=== PATIENT | male | born 1935 | race Caucasian/White ===

== ENCOUNTER 2019-02-17 05:14 | Inpatient (IN) | payer OTHER ==
[2019-02-17] MEDS ORDERED: IPRATROPIUM BROM 0.5MG/2.5ML ONE (05:54)
[2019-02-17] MEDS ORDERED: ALBUTEROL 2.5 MG/3 ML NEB SOL ONE (05:54)
[2019-02-17 06:11] LABS: Absolute Monocytes 1.2 K/uL (0.1-1.3); Absolute Neutrophil 10.6 K/uL (1.8-8.0); Basophils % 0.4 % (0-1.3); Eosinophils % 0.9 % (0-4.4); Hematocrit 41.7 % (39.6-49.0); Lymphocytes % 7.7 % (15.3-44.8); MPV 7.7 fL (7.6-11.3); Monocytes % 9.1 % (3.3-12.3); RBC Red Blood Cell Count 4.92 M/uL (4.33-5.43)
[2019-02-17 06:12] LABS: Protime INR 1.18
[2019-02-17 06:19] LABS: ALT/SGPT 24 U/L (12-78); AST/SGOT 19 U/L (15-37); Albumin 3.9 g/dL (3.4-5.0); Alkaline Phosphatase 74 U/L (45-117); BUN Blood Urea Nitrogen 22 mg/dL (7-18); Bicarbonate 24 mmol/L (21-32); Bilirubin Direct 0.3 mg/dL (0-0.2); Bilirubin Total 1.1 mg/dL (0.2-1.0); Glucose Level 138 mg/dL (74-106); Magnesium 1.9 mg/dL (1.8-2.4); NT PRO-BNP 348 pg/mL (<450); Potassium 3.9 mmol/L (3.5-5.1); Protein, Total 7.6 g/dL (6.4-8.2); Sodium Level 140 mmol/L (136-145); Troponin (Emerg Dept Use Only) < 0.02 ng/mL (0.0-0.045)
--- NOTE | 2019-02-17 07:16 | EDPHYS ---
Physician Documentation [facility] Name: Bashir Patel Age: 83 yrs Sex: Male : 1935 Arrival Date: 02/17/2019 Time: 05:15 Bed 16 Private MD: Sunny Douglass V ED Physician Angel Buck HPI: 02/17 06:31 This 83 yrs old Male presents to ER via Ambulatory with complaints of tw4 Shortness Of Breath. 06:31 The patient has shortness of breath at rest. tw4 06:31 Onset: The symptoms/episode began/occurred yesterday. Duration: The symptoms are tw4 continuous, and are unchanged since they started. The patient's shortness of breath has no apparent modifying factors. Associated signs and symptoms: The patient has no apparent associated signs or symptoms. Severity of symptoms: At their worst the symptoms were moderate. The patient has not experienced similar symptoms in the past. Historical: - Allergies: 05:43 SHELLFISH; bb - Home Meds: 05:43 losartan 100 mg oral tab 1 tab once daily [Active]; triamterene-hydrochlorothiazid bb 37.5-25 mg Oral tab 1 tab once daily [Active]; pravastatin 80 mg oral tab 1 tab once daily [Active]; multivitamin oral cap [Active]; Iron CR Oral [Active]; pantoprazole 40 mg oral TbEC 1 tab once daily [Active]; Curaphen [Active]; Probiotic oral oral [Active]; Plavix 75 mg Oral tab 1 tab once daily [Active]; Flomax 0.4 mg Oral cp24 1 cap once daily [Active]; venlafaxine 75 mg oral tr24 1 tab once daily [Active]; famotidine 20 mg Oral tab 1 tab once daily [Active]; cyclobenzaprine 5 mg Oral tab as needed [Active]; fenofibrate 150 mg oral cap 1 cap once daily [Active]; trazodone 100 mg Oral tab nightly [Active]; amlodipine 5 mg tab 1 tab once daily [Active]; metoprolol succinate 50 mg oral Tb24 1 tab once daily [Active]; naltrexone oral oral [Active]; - PMHx: 05:43 GERD; Hypertension; Hyperlipidemia; bleeding ulcers; CAD; bb - PSHx: 05:43 Tonsillectomy; polyp removal; bb - Immunization history:: Adult Immunizations up to date. - Social history:: Smoking status: unknown. - Ebola Screening: : No symptoms or risks identified at this time. ROS: 06:31 Constitutional: Negative for fever, chills, and weight loss, Eyes: Negative for injury, tw4 pain, redness, and discharge, ENT: Negative for injury, pain, and discharge, Abdomen/GI: Negative for abdominal pain, nausea, vomiting, diarrhea, and constipation. 06:31 Skin: Negative for injury, rash, and discoloration, Neuro: Negative for headache, weakness, numbness, tingling, and seizure. 06:31 Respiratory: Positive for shortness of breath, Negative for cough, dyspnea on exertion, hemoptysis, orthopnea, pleurisy. Exam: 06:31 Constitutional: This is a well developed, well nourished patient who is awake, alert, tw4 and in no acute distress. Head/Face: Normocephalic, atraumatic. Chest/axilla: Normal chest wall appearance and motion. Nontender with no deformity. No lesions are appreciated. Cardiovascular: Regular rate and rhythm with a normal S1 and S2. No gallops, murmurs, or rubs. Normal PMI, no JVD. No pulse deficits. 06:31 Abdomen/GI: Soft, non-tender, with normal bowel sounds. No distension or tympany. No guarding or rebound. No evidence of tenderness throughout. Back: No spinal tenderness. No costovertebral tenderness. Full range of motion. MS/ Extremity: Pulses equal, no cyanosis. Neurovascular intact. Full, normal range of motion. Neuro: Awake and alert, GCS 15, oriented to person, place, time, and situation. Cranial nerves II-XII grossly intact. Motor strength 5/5 in all extremities. Sensory grossly intact. Cerebellar exam normal. Normal gait. 06:31 Respiratory: the patient does not display signs of respiratory distress, Respirations: normal, Breath sounds: wheezing: Vital Signs: 05:35 BP 168 / 90; Pulse 117; Resp 26 S; Temp 99.6(O); Pulse Ox 96% on R/A; Weight 113.4 kg bb (R); Height 6 ft. 1 in. (185.42 cm) (R); 07:00 BP 171 / 91; Pulse 126; Resp 23; Temp 98.6(O); Pulse Ox 93% on R/A; Pain 9/10; rb1 08:00 BP 161 / 91; Pulse 128; Resp 22; Temp 98.1(O); Pulse Ox 96% on 2 lpm NC; Pain 9/10; rb1 09:00 BP 153 / 89; Pulse 120; Resp 20; Temp 99.6(O); Pulse Ox 95% on 2 lpm NC; Pain 7/10; rb1 10:00 BP 140 / 94; Pulse 116; Resp 21; Temp 99.1(O); Pulse Ox 99% on 2 lpm NC; Pain 6/10; rb1 11:00 BP 148 / 78; Pulse 120; Resp 20; Temp 98.9(O); Pulse Ox 95% on 2 lpm NC; Pain 4/10; rb1 12:30 BP 165 / 90; Pulse 116; Resp 22; Temp 99.0(O); Pulse Ox 95% on 2 lpm NC; mh5 13:30 BP 143 / 79; Pulse 113; Resp 20; Temp 99.(O); Pulse Ox 97% on 2 lpm NC; Pain 6/10; rb1 14:27 BP 102 / 89; Pulse 117; Resp 18; Temp 98.9(O); Pulse Ox 94% on 2 lpm NC; mh5 15:00 BP 143 / 79; Pulse 101; Resp 20; Temp 98.9(O); Pulse Ox 95% on 2 lpm NC; Pain 6/10; rb1 05:35 Body Mass Index 32.98 (113.40 kg, 185.42 cm) bb 07:00 Pt. put on 2 L NC. rb1 MDM: 05:34 Patient medically screened. tw4 23:02 Differential diagnosis: Anxiety Reaction reactive airway disease, Sepsis. Data tw4 reviewed: vital signs, nurses notes. Data interpreted: child monitor: rhythm is normal sinus rhythm, Pulse oximetry: Interpretation: normal. Counseling: I had a detailed discussion with the patient and/or guardian regarding: the historical points, exam findings, and any diagnostic results supporting the discharge/admit diagnosis, lab results, radiology results. Medication response: albuterol nebulizer treatment(s) partially relieved the patient's wheezing. Response to treatment: the patient's symptoms have mildly improved after treatment, and as a result, I will admit patient. Physician consultation: Sunny Douglass MD was contacted at 07:00, regarding admission, patient's condition, and will see patient in inpatient room. Admission orders: after a detailed discussion of the patient's condition and case, the admit orders are written by me. 02/17 05:40 Order name: Basic Metabolic Panel; Complete Time: 06:48 02/17 06:48 Interpretation: Normal except: GLUC 138; BUN 22; CRE 1.71; GFR 39. 02/17 05:40 Order name: CBC with Diff; Complete Time: 06:48 02/17 06:48 Interpretation: Normal except: WBC 12.9; MCHC 34.6; RDW 17.2; LYM% 7.7; ELY% 81.9; NEUT tw4 A 10.6. 02/17 05:40 Order name: LFT's; Complete Time: 06:48 02/17 06:48 Interpretation: BILIT 1.1; BILID 0.3; GLOB 3.7. 02/17 05:40 Order name: Magnesium; Complete Time: 06:49 02/17 06:49 Interpretation: Within normal limits: MG 1.9. 02/17 05:40 Order name: NT PRO-BNP; Complete Time: 06:49 02/17 06:49 Interpretation: Within normal limits: NT PRO-BNP 348. 02/17 05:40 Order name: PT-INR; Complete Time: 06:49 02/17 05:40 Order name: Troponin (emerg Dept Use Only); Complete Time: 06:50 02/17 06:50 Interpretation: TROPED < 0.02. 02/17 05:40 Order name: XRAY Chest (1 view) 02/17 05:40 Order name: EKG; Complete Time: 05:42 02/17 05:40 Order name: Cardiac monitoring; Complete Time: 05:43 02/17 05:40 Order name: EKG - Nurse/Tech; Complete Time: 05:43 02/17 06:24 Order name: Blood Culture Adult (2) lp1 02/17 09:06 Order name: Diet Regular; Complete Time: 09:07 02/17 05:40 Order name: IV Saline Lock; Complete Time: :43 4 02/17 05:40 Order name: Labs collected and sent; Complete Time: :4 02/17 05:40 Order name: O2 Per Protocol; Complete Time: 4 02/17 05:40 Order name: O2 Sat Monitoring; Complete Time: :43 4 EC:31 Rate is 114 beats/min. Rhythm is regular, Sinus tachycardia. QRS [place] is Normal. MA tw4 interval is normal. QRS interval is normal. QT interval is normal. No Q waves. T waves are Normal. No ST changes noted. Clinical impression: Abnormal EKG without significant change. Interpreted by me. Reviewed by me. Administered Medications: 05:47 Drug: DuoNeb (3:1) (2.5 mg - 0.5 mg) 3 ml Route: Nebulizer; 4 06:15 Follow up: Response: No adverse reaction; Marked relief of symptoms jb4 Disposition: 02/17/19 07:16 Hospitalization ordered by Sunny Douglass for Observation. Preliminary diagnosis are Acute bronchospasm, Tachycardia, unspecified, Pleural effusion, not elsewhere classified. - Bed requested for Telemetry/MedSurg (observation). - Status is Observation. rb1 - Condition is Stable. - Problem is new. - Symptoms have worsened. UTI on Admission? No Signatures: Dispatcher [employer] EDMS Mariya Pena, RN RN Nallely Rose ms Karen Vides, RN RN rb1 Manuel Weinberg, RN RN jb4 Angel Buck MD MD tw4 Corrections: (The following items were deleted from the chart) 07:16 07:16 Hospitalization Ordered by Sunny Douglass MD for Observation. Preliminary diagnosis tw4 is Acute bronchospasm; Tachycardia, unspecified. Bed requested for Telemetry/MedSurg (observation). Status is Observation. Condition is Stable. Problem is new. Symptoms have worsened. UTI on Admission? No. tw4 14:29 07:16 02/17/2019 07:16 Hospitalization Ordered by Sunny Douglass MD for Observation. ms Preliminary diagnosis is Acute bronchospasm; Tachycardia, unspecified; Pleural effusion, not elsewhere classified. Bed requested for Telemetry/MedSurg (observation). Status is Observation. Condition is Stable. Problem is new. Symptoms have worsened. UTI on Admission? No. tw4 15:35 14:29 02/17/2019 07:16 Hospitalization Ordered by Sunny Douglass MD for Observation. rb1 Preliminary diagnosis is Acute bronchospasm; Tachycardia, unspecified; Pleural effusion, not elsewhere classified. Bed requested for Telemetry/MedSurg (observation). Status is Observation. Condition is Stable. Problem is new. Symptoms have worsened. UTI on Admission? No. ms
--- NOTE | 2019-02-17 07:16 | ER ---
Nurse's Notes [facility] Name: Bashir Patel Age: 83 yrs Sex: Male : 1935 Arrival Date: 02/17/2019 Time: 05:15 Bed 16 Private MD: Sunny Douglass V Diagnosis: Acute bronchospasm;Tachycardia, unspecified;Pleural effusion, not elsewhere classified Presentation: 02/17 05:33 Presenting complaint: Patient states: he has been having shortness of breath since bb about 1500 yesterday pt unable to get comfortable because it is difficult to breath. Transition of care: patient was not received from another setting of care. Onset of symptoms was February 16, 2019. Risk Assessment: Do you want to hurt yourself or someone else? Patient reports no desire to harm self or others. Initial Sepsis Screen: Does the patient meet any 2 criteria? RR > 20 per min. HR > 90 bpm. Yes Does the patient have a suspected source of infection? Yes: Productive cough/pneumonia. Care prior to arrival: None. 05:33 Method Of Arrival: Ambulatory bb 05:33 Acuity: ARIANE 2 bb 05:33 Initial Sepsis Screen: If YES to both, name of provider notified: Angel Buck MD. Triage Assessment: 07:00 Respiratory: Reports shortness of breath at rest Pt. was put on 2 L NC after being 93% rb1 on RA. O2 sat increased to 96% on 2 L NC the patient has moderate shortness of breath. Historical: - Allergies: 05:43 SHELLFISH; bb - Home Meds: 05:43 losartan 100 mg oral tab 1 tab once daily [Active]; triamterene-hydrochlorothiazid bb 37.5-25 mg Oral tab 1 tab once daily [Active]; pravastatin 80 mg oral tab 1 tab once daily [Active]; multivitamin oral cap [Active]; Iron CR Oral [Active]; pantoprazole 40 mg oral TbEC 1 tab once daily [Active]; Curaphen [Active]; Probiotic oral oral [Active]; Plavix 75 mg Oral tab 1 tab once daily [Active]; Flomax 0.4 mg Oral cp24 1 cap once daily [Active]; venlafaxine 75 mg oral tr24 1 tab once daily [Active]; famotidine 20 mg Oral tab 1 tab once daily [Active]; cyclobenzaprine 5 mg Oral tab as needed [Active]; fenofibrate 150 mg oral cap 1 cap once daily [Active]; trazodone 100 mg Oral tab nightly [Active]; amlodipine 5 mg tab 1 tab once daily [Active]; metoprolol succinate 50 mg oral Tb24 1 tab once daily [Active]; naltrexone oral oral [Active]; - PMHx: 05:43 GERD; Hypertension; Hyperlipidemia; bleeding ulcers; CAD; bb - PSHx: 05:43 Tonsillectomy; polyp removal; bb - Immunization history:: Adult Immunizations up to date. - Social history:: Smoking status: unknown. - Ebola Screening: : No symptoms or risks identified at this time. Screenin:47 Abuse screen: Denies threats or abuse. Nutritional screening: No deficits noted. jb4 Tuberculosis screening: No symptoms or risk factors identified. Fall Risk IV access (20 points). Ambulatory Aid- Crutches/Cane/Walker (15 pts). Gait- Weak (10 pts.). Total Ac Fall Scale indicates High Risk Score (45 or more points). Fall prevention measures have been instituted. Side Rails Up X 2 Placed Close to Nursing Station Frequent Obs/Assessments Occuring Family Present and informed to notify staff if the need to leave the bedside As available patient and family educated on Fall Prevention Program and Strategies. Assessment: 05:47 General: Appears distressed, uncomfortable, Behavior is calm, cooperative, appropriate jb4 for age. Pain: Complains of pain in chest Pain does not radiate. Quality of pain is described as pleurisy like pain. Pain began 1 day ago. Aggravated by Taking a deep breath. Neuro: Level of Consciousness is awake, alert, obeys commands, Oriented to person, place, time, situation. Cardiovascular: Patient's skin is warm and dry. Rhythm is sinus tachycardia. Respiratory: Airway is patent Respiratory effort is even, labored, Respiratory pattern is symmetrical, tachypnea Breath sounds are clear in right upper lobe, left upper lobe, right middle lobe and left lower lobe Breath sounds are diminished in right lower lobe, left posterior upper lobe, right posterior upper lobe, left posterior lower lobe, right posterior middle lobe and right posterior lower lobe. GI: No signs and/or symptoms were reported involving the gastrointestinal system. : No signs and/or symptoms were reported regarding the genitourinary system. EENT: No signs and/or symptoms were reported regarding the EENT system. Derm: Skin is intact, Skin is dry, Skin is normal, Skin temperature is cool. Musculoskeletal: Circulation, motion, and sensation intact. 06:20 Reassessment: PT reports breathing better and more easily. Respiratory: Airway is jb4 patent Respiratory effort is even, labored, Respiratory pattern is symmetrical, tachypnea Breath sounds are clear bilaterally. 07:00 Pain: Complains of pain in chest Pain does not radiate. Pain currently is 9 out of 10 rb1 on a pain scale. Aggravated by deep breathing. Neuro: Level of Consciousness is awake, alert, obeys commands, Oriented to person, place, time, situation. Cardiovascular: Capillary refill < 3 seconds is brisk in bilateral fingers. Respiratory: Airway is patent Respiratory effort is even, labored, Respiratory pattern is symmetrical. Derm: Skin is pink, warm \T\ dry. Musculoskeletal: Range of motion: intact in all extremities. 08:00 Reassessment: Patient appears in no apparent distress at this time. No changes from rb1 previously documented assessment. at bedside. 08:59 Reassessment: Patient appears in no apparent distress at this time. Patient and/or rb1 family updated on plan of care and expected duration. Pain level reassessed. Patient is alert, oriented x 3, equal unlabored respirations, skin warm/dry/pink. 09:55 Reassessment: Patient appears in no apparent distress at this time. No changes from rb1 previously documented assessment. at bedside. 10:50 Reassessment: Patient appears in no apparent distress at this time. Patient and/or rb1 family updated on plan of care and expected duration. Pain level reassessed. Patient is alert, oriented x 3, equal unlabored respirations, skin warm/dry/pink. Patient states feeling better. 11:50 Reassessment: Patient appears in no apparent distress at this time. No changes from rb1 previously documented assessment. 12:50 Reassessment: Patient appears in no apparent distress at this time. Patient and/or rb1 family updated on plan of care and expected duration. Pain level reassessed. Patient is alert, oriented x 3, equal unlabored respirations, skin warm/dry/pink. at bedside. 13:48 Reassessment: Pt. is vomiting and requested medication for nausea per Naya, agent contract clerk. rb1 14:11 Reassessment: Left voicemail for Dr. Douglass requesting that he puts pt. orders in [address] so we can take the pt. to the floor and nausea medication per pt. request. 14:47 Reassessment: Patient appears in no apparent distress at this time. Patient and/or rb1 family updated on plan of care and expected duration. Pain level reassessed. Patient is alert, oriented x 3, equal unlabored respirations, skin warm/dry/pink. 15:09 Reassessment: Patient appears in no apparent distress at this time. No changes from [facility] previously documented assessment. Called report to REINA Hernandez. Information from the SBAR was given. All questions asked and answered. Vital Signs: 05:35 BP 168 / 90; Pulse 117; Resp 26 S; Temp 99.6(O); Pulse Ox 96% on R/A; Weight 113.4 kg bb (R); Height 6 ft. 1 in. (185.42 cm) (R); 07:00 BP 171 / 91; Pulse 126; Resp 23; Temp 98.6(O); Pulse Ox 93% on R/A; Pain 9/10; rb1 08:00 BP 161 / 91; Pulse 128; Resp 22; Temp 98.1(O); Pulse Ox 96% on 2 lpm NC; Pain 9/10; rb1 09:00 BP 153 / 89; Pulse 120; Resp 20; Temp 99.6(O); Pulse Ox 95% on 2 lpm NC; Pain 7/10; rb1 10:00 BP 140 / 94; Pulse 116; Resp 21; Temp 99.1(O); Pulse Ox 99% on 2 lpm NC; Pain 6/10; rb1 11:00 BP 148 / 78; Pulse 120; Resp 20; Temp 98.9(O); Pulse Ox 95% on 2 lpm NC; Pain 4/10; rb1 12:30 BP 165 / 90; Pulse 116; Resp 22; Temp 99.0(O); Pulse Ox 95% on 2 lpm NC; mh5 13:30 BP 143 / 79; Pulse 113; Resp 20; Temp 99.(O); Pulse Ox 97% on 2 lpm NC; Pain 6/10; rb1 14:27 BP 102 / 89; Pulse 117; Resp 18; Temp 98.9(O); Pulse Ox 94% on 2 lpm NC; mh5 15:00 BP 143 / 79; Pulse 101; Resp 20; Temp 98.9(O); Pulse Ox 95% on 2 lpm NC; Pain 6/10; rb1 05:35 Body Mass Index 32.98 (113.40 kg, 185.42 cm) bb 07:00 Pt. put on 2 L NC. rb1 ED Course: 05:15 Patient arrived in ED. ds1 05:15 Sunny Douglass MD is Private Physician. ds1 05:34 Angel Buck MD is Attending Physician. tw4 05:35 Triage completed. bb 05:35 Arm band placed on Patient placed in an exam room, on a stretcher, on cardiac technologist, bb on pulse oximetry. EKG completed in triage. Results shown to MD. 05:35 Inserted saline lock: 20 gauge in left forearm, using aseptic technique. Blood lp1 collected. 05:41 Manuel Weinberg, REINA is Primary Nurse. jb4 05:47 Patient has correct armband on for positive identification. Bed in low position. Call jb4 light in reach. Side rails up X 1. monitor tech on. Pulse ox on. NIBP on. 05:59 X-ray completed. Portable x-ray completed in exam room. Patient tolerated procedure kw well. 06:03 XRAY Chest (1 view) In Process Unspecified. EDMS 06:49 First set of blood cultures drawn by me. ag4 07:15 Sunny Douglass MD is Hospitalizing Provider. tw4 15:33 No provider procedures requiring assistance completed. Patient admitted, IV remains in rb1 place. Administered Medications: 05:47 Drug: DuoNeb (3:1) (2.5 mg - 0.5 mg) 3 ml Route: Nebulizer; jb4 06:15 Follow up: Response: No adverse reaction; Marked relief of symptoms jb4 Intake: 11:00 200 ml in urinal rb1 Output: 11:00 Urine: 1ml (Voided); Total: 1ml. rb1 11:15 Urine: 1ml (Voided); Total: 2ml. rb1 11:00 200 ml in urinal rb1 Outcome: 07:16 Decision to Hospitalize by Provider. tw4 15:33 Admitted to Med/surg accompanied by tech, family with patient, via wheelchair, room rb1 207, with oxygen, with chart, Report called to REINA Hernandez 15:33 Condition: stable 15:33 Instructed on the need for admit. 15:35 Patient left the ED. rb1 Signatures: Dispatcher [employer] EDPR Mirtha Hairston ds1 Mariya Pena RN RN bb Sharon Mendiola Laura, RN RN lp1 Karen Vides RN RN rb1 Manuel Weinberg RN RN jb4 Martinez, Maria 5 Angel Buck MD MD tw4 Skip Patterson ag4
--- NOTE | 2019-02-17 10:07 | RAD REPORT ---
EXAM DESCRIPTION: [facility] Single View02/17/2019 6:03 am CLINICAL HISTORY: sob COMPARISON: November 2018 FINDINGS: The lungs appear clear of acute infiltrate. The heart is normal size IMPRESSION: No acute abnormalities displayed
[2019-02-17] MEDS ORDERED: CYCLOBENZAPRINE 10 MG TAB PO PRN (16:40)
--- NOTE | 2019-02-17 16:57 | P.HP ---
Certification for Inpatient Patient admitted to: Inpatient With expected LOS: >2 Midnights Practitioner: I am a practitioner with admitting privileges, knowledge of patient current condition, hospital course, and medical plan of care. Services: Services provided to patient in accordance with Admission requirements found in Title 42 Section 412.3 of the Code of Federal Regulations Patient History Date of Service: 02/17/19 Reason for admission: SHORT OF BREATH FOR ONE DAY. History of Present Illness: MR. BAKER WAS STABLE AND HAD NO SYMPTOMS WHEN I SAW HIM ON TUESDAY. HE STARTED TO GET SHORT OF BREATH ON TUESDAY. HE HAS NO CHEST PAIN. HE WHILE TALKING TO ME IS GETTING TO STOP EVERY FEW WORDS. Allergies iodine Allergy (Unverified 02/25/15 22:13) Unknown Penicillins Allergy (Unverified 02/25/15 22:13) Unknown SHELLFISH Allergy (Uncoded 02/25/15 22:13) Unknown Home Medications: Amlodipine [Norvasc] 5 mg PO DAILY 02/17/19 Clopidogrel Bisulfate [Plavix] 75 mg PO DAILY 02/17/19 Cyclobenzaprine [Flexeril] 10 mg PO BID PRN 02/17/19 Famotidine [Pepcid] 20 mg PO BID 02/17/19 Fenofibrate [Tricor] 145 mg PO DAILY 02/17/19 Ferrous Sulfate [Iron] 325 mg PO DAILY 02/17/19 Losartan Potassium [Cozaar] 100 mg PO DAILY 02/17/19 Metoprolol Succinate 50 mg PO DAILY 02/17/19 Naltrexone HCl 3 mg PO DAILY 02/17/19 Pantoprazole [Protonix Tab] 40 mg PO DAILY 02/17/19 Pravastatin Sodium 80 mg PO DAILY 02/17/19 Tamsulosin [Flomax] 0.4 mg PO BEDTIME 02/17/19 Trazodone [Desyrel] 100 mg PO BEDTIME 02/17/19 Triamterene/Hydrochlorothiazid [Triamterene-Hctz 37.5-25 mg Cp] 1 tab PO DAILY 02/17/19 Venlafaxine HCl [Venlafaxine HCl ER] 75 mg PO DAILY 02/17/19 Venlafaxine HCl [Venlafaxine HCl ER] 75 mg PO DAILY 02/17/19 - Past Medical/Surgical History Has patient received pneumonia vaccine in the past: No Diabetic: No -: htn -: hyperlipidemia -: gerd - Social History Smoking Status: Former smoker Alcohol use: No CD- Drugs: No Caffeine use: Yes Place of Residence: Home Review of Systems 10-point ROS is otherwise unremarkable General: Weakness, Malaise Respiratory: Shortness of Breath Physical Examination - Vital Signs Temperature: 98.9 F Blood Pressure: 102/89 Pulse: 117 Respirations: 18 - Physical Exam General: Alert, Mild distress, Obese HEENT: Atraumatic, PERRLA, Mucous membr. moist/pink, EOMI, Sclerae nonicteric Neck: Supple, 2+ carotid pulse no bruit, No LAD, Without JVD or thyroid abnormality Respiratory: Clear to auscultation bilaterally, Normal air movement Cardiovascular: Abnormal S1 S2 (TACHYCARDIA) Gastrointestinal: Normal bowel sounds, No tenderness Musculoskeletal: No tenderness Integumentary: No rashes Neurological: Normal gait, Normal speech, Normal strength at 5/5 x4 extr, Normal tone, Normal affect Lymphatics: No axilla or inguinal lymphadenopathy - Studies Laboratory Data (last 24 hrs) 02/17/19 05:35: PT 13.8 H, INR 1.18 02/17/19 05:35: WBC 12.9 H, Hgb 14.4, Hct 41.7, Plt Count 261 02/17/19 05:35: Sodium 140, Potassium 3.9, BUN 22 H, Creatinine 1.71 H, Glucose 138 H, Magnesium 1.9, Total Bilirubin 1.1 H, AST 19, ALT 24, Alkaline Phosphatase 74 Assessment and Plan - Problems (Diagnosis) (1) Dyspnea Current Visit: Yes Status: Acute Plan: MR BAKER GOT ACUTELY DYSPNEIC. HE IS OBESE AND HAS SOME RISK FACTORS FOR PE. I ORDERED D DIMER STAT. LOVENOX SC. WHEN CREATININE COMES DOWN TO 1.[address] ANGIO CHEST IN AM. HE SMOKED UNTIL AND DOES NOT HAVE COPD BY HISTORY. CXR SHOWS NO ACUTE CHANGES. HE HAS NO PNEUMONIA, CHF OR FIBROSIS. WILL COVER HIM FOR PE UNTIL FURTHER DIAGNOSED. HE HAS TACHYCARDIA. ER DOCTOR SAID HE WAS GOING TO ORDER VQ SCAN BUT HAS NOT BEEN DONE. I WILL COVER WITH LOVENOX AND DO CT IN AM IT MAY GIVE ME MORE INFORMATION LIKE PL.EFFUSION, MASSES ETC. PROGNOSIS IS GUARDED. ER HAS NOT DONE EKG. WE HAVE IT PENDING. TELEMETRY HAS BEEN ORDERED. - Advance Directives Does patient have a Living Will: Yes Does patient have a Durable POA for Healthcare: Yes
[2019-02-17] MEDS ORDERED: NACHLORIDE 0.45% 1,000 ML IV SCH (17:00)
[2019-02-17] MEDS: METHYLPREDNISOLONE 40 MG INJ IV SCH (17:27)
[2019-02-17 17:34] LABS: Arterial Blood Carboxyhemoglob 1.9 % (0-1.5); Blood Gas Oxyhemoglobin 91.1 % (94-97); Blood O2 Saturation 93.4 % (92-98.5)
[2019-02-17 17:51] LABS: Creatine Phosphokinase 109 U/L (39-308); Troponin I < 0.02 ng/mL (0.0-0.045)
[2019-02-17] MEDS: ALBUTEROL 2.5 MG/3 ML NEB SOL NEB SCH (19:55)
[2019-02-17 21:03] LABS: Urine Appearance CLOUDY; Urine Bilirubin NEGATIVE (NEG); Urine Blood TRACE (NEG); Urine Color DK YELLOW; Urine Glucose NEGATIVE (NEG); Urine Protein 1+ (NEG); Urine Urobilinogen 0.2 mg/dL (0.2-1.0)
[2019-02-17 21:20] LABS: Urine Microscopic Reflex ORDER UMIC
[2019-02-17 21:23] LABS: Urine Amorphous Sediment 1+ /HPF (NONE SEEN); Urine Bacteria <20 /HPF (NONE SEEN); Urine Culture Reflex Order REFLEXED; Urine RBC <5 /HPF (NONE SEEN)
[2019-02-17] MEDS: ENOXAPARIN 100 MG/ML SYR SQ SCH (21:48)
[2019-02-17] MEDS: TRAZODONE 50 MG TABLET PO SCH (21:48)
[2019-02-17] MEDS: TAMSULOSIN 0.4 MG SR CAP PO SCH (21:48)
[2019-02-17] MEDS: ATORVASTATIN 10 MG TAB PO SCH (21:48)
[2019-02-18] MEDS: METHYLPREDNISOLONE 40 MG INJ IV SCH ×2 (00:13→05:27)
[2019-02-18 01:27] LABS: Creatine Phosphokinase 124 U/L (39-308); Troponin I < 0.02 ng/mL (0.0-0.045)
[2019-02-18] MEDS: ALBUTEROL 2.5 MG/3 ML NEB SOL NEB SCH ×4 (02:00→20:00)
[2019-02-18] MEDS: PANTOPRAZOLE 40MG TABLET PO SCH (05:27)
--- NOTE | 2019-02-18 06:22 | EKG ---
Test Date: 2019-02-17 Test Time: 05:33:49 Rib Knitter: ALEXANDRA MEASUREMENT RESULTS: Intervals: Rate: 114 [place]: 142 QRSD: 86 QT: 334 QTc: 460 [place]: P: 12 [place]: 142 QRS: -26 T: 93 INTERPRETIVE STATEMENTS: Sinus tachycardia with occasional premature ventricular complexes Nonspecific ST abnormality Non specific T wave abnormality Abnormal ECG Compared to ECG 11/28/2018 17:08:51 ST (T wave) deviation now present T-wave abnormality now present Sinus rhythm no longer present Electronically Signed On 02-18-19 06:21:32 CDT by Abdirashid Bradford
[2019-02-18 06:32] LABS: Absolute Lymphocytes (CBC) 0.5 K/uL (0.7-4.9); Absolute Monocytes 0.2 K/uL (0.1-1.3); Absolute Neutrophil 9.9 K/uL (1.8-8.0); Basophils % 0.1 % (0-1.3); Hematocrit 38.3 % (39.6-49.0); Lymphocytes % 4.8 % (15.3-44.8); MPV 7.8 fL (7.6-11.3); Monocytes % 1.6 % (3.3-12.3); RBC Red Blood Cell Count 4.46 M/uL (4.33-5.43)
[2019-02-18 06:45] LABS: Magnesium 2.2 mg/dL (1.8-2.4); Potassium 4.3 mmol/L (3.5-5.1)
[2019-02-18 08:17] LABS: Blood Morphology Comment NOT SEEN (NOT SEEN); Platelet Estimate ADEQ
[2019-02-18] MEDS: ENOXAPARIN 100 MG/ML SYR SQ SCH ×2 (08:35→21:10)
[2019-02-18] MEDS: LOSARTAN POTASSIUM 50 MG TABLET PO SCH (08:35)
[2019-02-18] MEDS: FERROUS SULFATE 325 MG TAB PO SCH (08:35)
[2019-02-18] MEDS: METOPROLOL XL 50 MG TAB PO SCH (08:36)
[2019-02-18] MEDS: VENLAFAXINE HCL XR 75 MG CAP PO SCH (08:36)
[2019-02-18] MEDS: FENOFIBRATE 160 MG TAB PO SCH (08:36)
[2019-02-18] MEDS: CLOPIDOGREL 75 MG TABLET PO SCH (08:36)
[2019-02-18] MEDS: AMLODIPINE 5 MG TAB PO SCH (08:37)
[2019-02-18] MEDS: NALTREXONE HCL PO SCH (08:37)
[2019-02-18] MEDS: NACHLORIDE 0.45% 1,000 ML IV SCH ×2 (09:15→18:34)
--- NOTE | 2019-02-18 11:40 | P.PN ---
Subjective Date of Service: 02/18/19 Chief Complaint: SHORT OF BREATH FOR ONE DAY. Subjective: Improving IS DOING A LOT BETTER. HE IS NOT DYSPNEIC ANY LONGER. HE GOT ONE INJECTION OF LOVENOX LAST NIGHT AND IT HELPED. Review of Systems 10-point ROS is otherwise unremarkable General: Weakness, Malaise Respiratory: Shortness of Breath Physical Examination - Vital Signs Temperature: 98.1 F Blood Pressure: 144/82 Pulse: 109 Respirations: 20 Pulse Ox (%): 94 - Physical Exam General: Alert, In no apparent distress HEENT: Atraumatic, PERRLA, EOMI Neck: Supple, JVD not distended Respiratory: Clear to auscultation bilaterally, Normal air movement Cardiovascular: Regular rate/rhythm, Normal S1 S2 Gastrointestinal: Normal bowel sounds, No tenderness Musculoskeletal: No tenderness Integumentary: No rashes Neurological: Normal speech, Normal tone, Normal affect Lymphatics: No axilla or inguinal lymphadenopathy - Studies Medications List Reviewed: Yes Assessment And Plan - Current Problems (Diagnosis) (1) Dyspnea Current Visit: Yes Status: Acute Plan: MR BAKER GOT ACUTELY DYSPNEIC. HE IS OBESE AND HAS SOME RISK FACTORS FOR PE. I ORDERED D DIMER STAT. LOVENOX SC. WHEN CREATININE COMES DOWN TO 1.[address] ANGIO CHEST IN AM. HE SMOKED UNTIL 1980S AND DOES NOT HAVE COPD BY HISTORY. CXR SHOWS NO ACUTE CHANGES. HE HAS NO PNEUMONIA, CHF OR FIBROSIS. WILL COVER HIM FOR PE UNTIL FURTHER DIAGNOSED. HE HAS TACHYCARDIA. ER DOCTOR SAID HE WAS GOING TO ORDER VQ SCAN BUT HAS NOT BEEN DONE. I WILL COVER WITH LOVENOX AND DO CT IN AM IT MAY GIVE ME MORE INFORMATION LIKE PL.EFFUSION, MASSES ETC. PROGNOSIS IS GUARDED. ER HAS NOT DONE EKG. WE HAVE IT PENDING. TELEMETRY HAS BEEN ORDERED. D DIMER IS 7000. I TALKED TO NURSE LAST NIGHT HAD MAKE SURE HE RECEIVED LOVENOX. HE DID GREAT IN SHORT TIME. I STILL CAN'T DO CT SCAN HE HAS CREAT HIGH UP TO 1.78. (2) Dehydration Current Visit: Yes Status: Acute Plan: DEHYDRATION SHOULD IMPROVE. I RAISED IV FLUIDS HE WILL STAY ONE MORE DAY HERE.
--- NOTE | 2019-02-18 12:03 | RAD REPORT ---
EXAM DESCRIPTION: US - Extrem Venous W Compress Andrea - 02/18/2019 10:56 am CLINICAL HISTORY: EDEMA Bilateral leg edema and swelling. COMPARISON: No comparisons TECHNIQUE: Real-time sonographic interrogation of the left and right lower extremity deep venous sys tems was performed. FINDINGS: Normal compressibility, flow augmentation, phasic flow and spontaneous flow is identified in both the left and right lower extremity deep venous systems. IMPRESSION: No sonographic evidence of left or right lower extremity deep venous thrombosis.
--- NOTE | 2019-02-18 12:05 | RAD REPORT ---
EXAM DESCRIPTION: RAD - Chest Pa And Lat (2 Views) - 02/18/2019 9:30 am CLINICAL HISTORY: DYSPNEA, FOLLOW UP Chest pain. COMPARISON: Chest Single View dated 02/17/2019; Chest Pa And Lat (2 Views) dated 11/28/2018; Chest Pa And Lat (2 Views) dated 03/18/2018 FINDINGS: Hyperexpanded lungs is present compatible with COPD. Chronic blunting of both costophrenic angles compatible with pleural thickening. The heart is normal in size. No displaced fractures. IMPRESSION: Prominent COPD.
--- NOTE | 2019-02-18 12:25 | RAD REPORT ---
EXAM DESCRIPTION: US - Abdomen Exam Complete - 02/18/2019 11:08 am CLINICAL HISTORY: Abdominal pain. PAIN IN ABDOMEN COMPARISON: No comparisons FINDINGS: Mild fatty liver. No focal liver lesions or intrahepatic biliary dilatation is seen. The gallbladder demonstrates no gallstones, pericholecystic fluid or gallbladder wall thickening. Co mmon bile duct is normal in caliber measuring 5 millimeters. Both kidneys are normal in size, shape and echotexture. No hydronephrosis, focal lesion of concern or perinephric fluid. 26 x 17 mm left renal cyst. The spleen is normal in size measuring 8 centimeters. The pancreas and aorta are obscured by bowel gas. The visualized aspects of the IVC are grossly normal. IMPRESSION: Mild fatty liver. Left renal cyst.
[2019-02-18] MEDS: TRAZODONE 50 MG TABLET PO SCH (21:09)
[2019-02-18] MEDS: TAMSULOSIN 0.4 MG SR CAP PO SCH (21:09)
[2019-02-18] MEDS: ATORVASTATIN 10 MG TAB PO SCH (21:10)
[2019-02-19] MEDS: ALBUTEROL 2.5 MG/3 ML NEB SOL NEB SCH ×3 (02:00→13:45)
[2019-02-19] MEDS: NACHLORIDE 0.45% 1,000 ML IV SCH (04:49)
[2019-02-19 05:24] LABS: Absolute Lymphocytes (CBC) 0.6 K/uL (0.7-4.9); Absolute Monocytes 0.9 K/uL (0.1-1.3); Absolute Neutrophil 12.8 K/uL (1.8-8.0); Basophils % 0.2 % (0-1.3); Hematocrit 35.9 % (39.6-49.0); Lymphocytes % 4.5 % (15.3-44.8); MPV 7.7 fL (7.6-11.3); Monocytes % 6.1 % (3.3-12.3); RBC Red Blood Cell Count 4.26 M/uL (4.33-5.43)
[2019-02-19] MEDS: PANTOPRAZOLE 40MG TABLET PO SCH (05:28)
[2019-02-19 05:35] LABS: Potassium 3.4 mmol/L (3.5-5.1)
--- NOTE | 2019-02-19 07:23 | RAD REPORT ---
EXAM DESCRIPTION: NM - Vent Perfusion VQ Scan - 02/19/2019 7:12 am CLINICAL HISTORY: Shortness of breath COMPARISON: Chest film February 18 TECHNIQUE: The patient was administered 21.2 mCi Xenon 133 gas with posterior projection inspiration , equilibrium, and washout views obtained. The patient was then administered 7.0 mCi Tc-99m MAA label ed RBCs followed by standard 8 view protocol. FINDINGS: There is good distribution of the Xenon with no ventilation defects identified. No signifi cant air-trapping seen. No lobar or segmental size defects seen. Minimal subsegmental size defects are present in the posteri or right lung base and possibly in the lateral right midlung field. Distribution is somewhat heteroge neous matching a COPD history. IMPRESSION: Low probability V/Q scan for pulmonary embolism. No ventilation defects or significant air trapping.
[2019-02-19] MEDS: NALTREXONE HCL PO SCH (09:00)
[2019-02-19] MEDS: ENOXAPARIN 100 MG/ML SYR SQ SCH (09:16)
[2019-02-19] MEDS: METOPROLOL XL 50 MG TAB PO SCH (09:17)
[2019-02-19] MEDS: AMLODIPINE 5 MG TAB PO SCH (09:18)
[2019-02-19] MEDS: FERROUS SULFATE 325 MG TAB PO SCH (09:18)
[2019-02-19] MEDS: LOSARTAN POTASSIUM 50 MG TABLET PO SCH (09:18)
[2019-02-19] MEDS: FENOFIBRATE 160 MG TAB PO SCH (09:19)
[2019-02-19] MEDS: VENLAFAXINE HCL XR 75 MG CAP PO SCH (09:19)
[2019-02-19] MEDS: CLOPIDOGREL 75 MG TABLET PO SCH (09:19)
--- NOTE | 2019-02-19 21:40 | P.DS ---
Admission Date: 02/18/19 Discharge Date: 02/19/19 Disposition: ROUTINE DISCHARGE Discharge Condition: GOOD Reason for Admission: SHORT OF BREATH FOR ONE DAY. - Problems (1) Dyspnea Status: Acute (2) Dehydration Status: Acute Brief History of Present Illness: MR. BAKER WAS STABLE AND HAD NO SYMPTOMS WHEN I SAW HIM ON TUESDAY. HE STARTED TO GET SHORT OF BREATH ON TUESDAY. HE HAS NO CHEST PAIN. HE WHILE TALKING TO ME IS GETTING TO STOP EVERY FEW WORDS. MR. BAKER IS A LOT BETTER. HIS VQ SCAN, VENOUS DOPPLER AND SONOGRAM OF ABDOMEN ALL ARE NEGATIVE. HIS WBC IS MILD HIGH FROM STEROIDS. IT LOOKS LIKE STEROIDS HELPED HIS COPD HIS D DIMER IS FALSLY HIGH FOR PE. I GAVE HIM TWO INHALERS TO GO HOME. Vital Signs/Physical Exam: Temp Pulse Resp BP Pulse Ox 97.7 F 108 H 16 134/69 93 02/19/19 12:00 02/19/19 12:00 02/19/19 12:00 02/19/19 12:00 02/19/19 12:00 Laboratory Data at Discharge: WBC 14.4 K/uL (4.3-10.9) H D 02/19/19 05:04 Hgb 12.2 g/dL (13.6-17.9) L 02/19/19 05:04 Hct 35.9 % (39.6-49.0) L 02/19/19 05:04 Plt Count 262 K/uL (152-406) 02/19/19 05:04 PT 13.8 SECONDS (9.5-12.5) H 02/17/19 05:35 INR 1.18 02/17/19 05:35 Sodium 142 mmol/L (136-145) 02/19/19 05:04 Potassium 3.4 mmol/L (3.5-5.1) L 02/19/19 05:04 BUN 39 mg/dL (7-18) H 02/19/19 05:04 Creatinine 1.65 mg/dL (0.55-1.3) H 02/19/19 05:04 Glucose 126 mg/dL (74-106) H 02/19/19 05:04 Magnesium 2.2 mg/dL (1.8-2.4) 02/18/19 05:32 Total Bilirubin 1.1 mg/dL (0.2-1.0) H 02/17/19 05:35 AST 19 U/L (15-37) 02/17/19 05:35 ALT 24 U/L (12-78) 02/17/19 05:35 Alkaline Phosphatase 74 U/L (45-117) 02/17/19 05:35 Troponin I < 0.02 ng/mL (0.0-0.045) 02/18/19 00:43 Home Medications: Amlodipine [Norvasc] 5 mg PO DAILY 02/17/19 Clopidogrel Bisulfate [Plavix] 75 mg PO DAILY 02/17/19 Cyclobenzaprine [Flexeril] 10 mg PO BID PRN 02/17/19 Famotidine [Pepcid] 20 mg PO BID 02/17/19 Fenofibrate [Tricor] 145 mg PO DAILY 02/17/19 Ferrous Sulfate [Iron] 325 mg PO DAILY 02/17/19 Losartan Potassium [Cozaar] 100 mg PO DAILY 02/17/19 Metoprolol Succinate 50 mg PO DAILY 02/17/19 Naltrexone HCl 3 mg PO DAILY 02/17/19 Pantoprazole [Protonix Tab] 40 mg PO DAILY 02/17/19 Pravastatin Sodium 80 mg PO DAILY 02/17/19 Tamsulosin [Flomax] 0.4 mg PO BEDTIME 02/17/19 Trazodone [Desyrel] 100 mg PO BEDTIME 02/17/19 Triamterene/Hydrochlorothiazid [Triamterene-Hctz 37.5-25 mg Cp] 1 tab PO DAILY 02/17/19 Venlafaxine HCl [Venlafaxine HCl ER] 75 mg PO DAILY 02/17/19 Venlafaxine HCl [Venlafaxine HCl ER] 75 mg PO DAILY 02/17/19 Albuterol Sulfate [Proair Hfa] 8.5 gm IH TID #1 hfa.aer.ad 02/19/19 Umeclidinium Brm/Vilanterol Tr [Anoro Ellipta 62.5-25 Mcg INH] 1 each IH DAILYRESP #1 blst.w.dev 02/19/19 New Medications: Albuterol Sulfate [Proair Hfa] 8.5 gm IH TID #1 hfa.aer.ad Umeclidinium Brm/Vilanterol Tr [Anoro Ellipta 62.5-25 Mcg INH] 1 each IH DAILYRESP #1 blst.w.dev Followup: Sunny Douglass MD [Primary Care Provider] -
== END 2019-02-19 15:58 | disposition home health service (06) | DRG 204 ==
LOC: ER 05:14 → ERHOLD 14:06 → 2ND 15:12 → OBSVTOIN 02-18 12:14
PROVIDERS: ADMIT Internal Medicine; ATTEND Internal Medicine
DX: R06.00 Dyspnea, unspecified (principal); E86.0 Dehydration; R00.0 Tachycardia, unspecified; I10 Essential (primary) hypertension; E66.9 Obesity, unspecified; Z68.33 Body mass index [BMI] 33.0-33.9, adult; Z88.0 Allergy status to penicillin; Z91.013 Allergy to seafood
CPT/HCPCS: 36415; 71045; 71046; 76700; 78582; 80048; 80076; 81003; 81015; 82550; 82805; 83735; 83880; 84484; 85025; 85379; 85610; 87040; 87086; 87088; 93005; 93970; 94640; 96365; 96367; 99285; A9540; A9558; G0378; J1650; J2920

== ENCOUNTER 2019-08-07 11:04 | Observation (INO) | payer OTHER ==
[2019-08-07 12:52] LABS: Absolute Lymphocytes (CBC) 0.6 K/uL (0.7-4.9); Basophils % 0.1 % (0-1.3); Hematocrit 40.9 % (39.6-49.0); Lymphocytes % 4.1 % (15.3-44.8); MPV 7.6 fL (7.6-11.3); RBC Red Blood Cell Count 4.63 M/uL (4.33-5.43)
[2019-08-07 13:00] LABS: Protime INR 1.26
[2019-08-07] MEDS ORDERED: DIPHENHYDRAMINE 25 MG TAB/CAP PO PRN (13:00)
[2019-08-07] MEDS ORDERED: ONDANSETRON 4 MG (ODT) TAB PO PRN (13:00)
[2019-08-07] MEDS ORDERED: POLYETHYL GLY 3350 17 GM/DOSE PO PRN (13:00)
[2019-08-07] MEDS ORDERED: ONDANSETRON 4 MG/2 ML VIAL IV PRN (13:00)
[2019-08-07] MEDS: NACHLORIDE 0.45% 1,000 ML IV SCH ×2 (13:06→23:00)
[2019-08-07] MEDS: ACETAMINOPHEN 325 MG TABLET PO PRN ×2 (13:06→17:38)
[2019-08-07 13:23] LABS: Albumin 3.4 g/dL (3.4-5.0); Bilirubin Direct 0.2 mg/dL (0-0.2); Bilirubin Total 1.1 mg/dL (0.2-1.0); Blood Morphology Comment NOT SEEN (NOT SEEN); Magnesium 1.7 mg/dL (1.8-2.4); Phosphorus 2.2 mg/dL (2.5-4.9); Platelet Estimate ADEQ; Potassium 3.3 mmol/L (3.5-5.1); Protein, Total 6.8 g/dL (6.4-8.2); Thyroid Stimulating Hormone 1.05 uIU/mL (0.360-3.740)
[2019-08-07 14:48] VITALS: BMI 33.2
[2019-08-07] MEDS ORDERED: KCL 20 MEQ/100 mL IVPB 20 MEQ/100 ML BAG IV SCH (15:00)
[2019-08-07] MEDS: KCL 20 MEQ/100 mL IVPB 20 MEQ/100 ML BAG IV SCH ×3 (15:41→22:50)
--- NOTE | 2019-08-07 15:45 | RAD REPORT ---
EXAM DESCRIPTION: RAD - Chest Pa And Lat (2 Views) - 08/07/2019 2:48 pm CLINICAL HISTORY: nvdshortness of breath, abdominal pain COMPARISON: January 2019 TECHNIQUE: PA and lateral views of the chest were obtained. FINDINGS: The lungs are clear of a focal lung parenchymal process. No failure or volume overload. In terstitial pattern matches comparison. Heart size is normal and central vasculature is within alec l limits. No pleural effusion or pneumothorax seen. No acute bony finding noted. No aortic abnorma lity. IMPRESSION: Chronic interstitial lung disease matching comparison. No acute finding.
--- NOTE | 2019-08-07 15:46 | RAD REPORT ---
EXAM DESCRIPTION: RAD - Abdomen W Erect - 08/07/2019 2:48 pm CLINICAL HISTORY: nausea vomitting COMPARISON: <Comparisons> TECHNIQUE: Supine and upright views of the abdomen were obtained. FINDINGS: No free air or pneumatosis. No dilated colon. Prominent small bowel loops are present. Sig moid colon is tortuous and redundant. Ileus or enteritis favored over bowel obstruction. No suspiciou s calcifications. Prominent bony degenerative change present in the spine. IMPRESSION: Prominent small bowel pattern without free air or pneumatosis. Ileus or enteritis favored over bowel obstruction. Follow-up CT abdomen and pelvis imaging could be p erformed if the patient has continued unexplained symptoms.
[2019-08-07] MEDS ORDERED: POTASSIUM CL SA 10 MEQ TAB PO ONE (16:00)
[2019-08-07] MEDS: POTASS/SODIUM PHOSPHATE 1 PKT POWD.PACK PO SCH ×2 (16:53→17:46)
[2019-08-07] MEDS ORDERED: MAGNESIUM SULFATE 1 gm IVPB 1 GM/100 ML BAG IV ONE (17:00)
[2019-08-07] MEDS ORDERED: PNEUMOCOCCAL VACCINE 0.5 ML IMVAC ONE (17:00)
[2019-08-07] MEDS: LOPERAMIDE HCL 2 MG CAPSULE PO PRN (17:50)
[2019-08-08] MEDS: ACETAMINOPHEN 325 MG TABLET PO PRN ×2 (00:33→05:13)
[2019-08-08 05:30] LABS: Urine Appearance CLOUDY; Urine Bilirubin NEGATIVE (NEG); Urine Blood 2+ (NEG); Urine Color YELLOW; Urine Glucose NEGATIVE (NEG); Urine Protein 2+ (NEG); Urine Urobilinogen 0.2 mg/dL (0.2-1.0); Urine pH 5.5 (5.0-7.0)
[2019-08-08 05:33] LABS: Urine Microscopic Reflex ORDER UMIC
[2019-08-08 05:58] LABS: Absolute Lymphocytes (CBC) 0.8 K/uL (0.7-4.9); Basophils % 0.3 % (0-1.3); Hematocrit 39.1 % (39.6-49.0); Lymphocytes % 8.5 % (15.3-44.8); MPV 7.6 fL (7.6-11.3); RBC Red Blood Cell Count 4.47 M/uL (4.33-5.43)
[2019-08-08 06:06] LABS: Urine Amorphous Sediment 1+ /HPF (NONE SEEN); Urine Bacteria 20-50 /HPF (NONE SEEN); Urine Coarse Granular Casts 0-5 /LPF (NONE SEEN); Urine Culture Reflex Order REFLEXED; Urine RBC <5 /HPF (NONE SEEN)
[2019-08-08 06:13] LABS: Phosphorus 1.9 mg/dL (2.5-4.9); Potassium 3.2 mmol/L (3.5-5.1)
--- NOTE | 2019-08-08 06:31 | EKG ---
Test Date: 2019-08-07 Test Time: 17:35:22 Associate Professor Of Psychology: AIDE MEASUREMENT RESULTS: Intervals: Rate: 107 AL: 158 QRSD: 86 QT: 360 QTc: 480 [place]: P: 45 AL: 158 QRS: 78 T: 11 INTERPRETIVE STATEMENTS: Sinus tachycardia with premature supraventricular complexes and premature ventricular complexes Septal infarct, age undetermined Abnormal ECG Compared to ECG 02/17/2019 05:33:49 Atrial premature complex(es) now present Myocardial infarct finding now present Electronically Signed On 08-08-19 06:31:10 CAKE STRIPPER by Abdirashid Bradford
[2019-08-08] MEDS: ENOXAPARIN 40 MG/0.4 ML SQ SCH (08:33)
[2019-08-08] MEDS: NACHLORIDE 0.45% 1,000 ML IV SCH ×3 (08:33→20:20)
[2019-08-08] MEDS: LOPERAMIDE HCL 2 MG CAPSULE PO PRN ×3 (08:34→16:57)
[2019-08-08] MEDS: POTASS/SODIUM PHOSPHATE 1 PKT POWD.PACK PO SCH ×2 (08:35→11:07)
[2019-08-08] MEDS ORDERED: POTASSIUM CL SA 10 MEQ TAB PO ONE ×2 (09:00→18:00)
[2019-08-08] MEDS ORDERED: CYCLOBENZAPRINE 10 MG TAB PO PRN ×2 (13:21→17:55)
[2019-08-08] MEDS ORDERED: cloNIDine HCL 0.1 MG TAB PO PRN (13:21)
[2019-08-08 14:45] LABS: C.diff Antigen/Toxin Ag neg : Tox neg (NEG : NEG)
[2019-08-08] MEDS ORDERED: cloNIDine HCl 0.1 MG TAB PO PRN (17:57)
[2019-08-08] MEDS: FAMOTIDINE 20 MG PO SCH (20:20)
[2019-08-08] MEDS ORDERED: FAMOTIDINE 20 MG TAB PO SCH ×2 (21:00)
--- NOTE | 2019-08-09 00:19 | PN ---
Subjective: Mr. Patel is doing a lot better, but still has fever, generally is weak. He still has diarrhea continuously. Objective: General: Generally, he is weak. Clinically, not able to ambulate properly yet as he has diffuse weakness. Vital Signs: Blood pressure is 178/92, pulse 96. Last 2 temperatures have been normal Abdomen: No guarding, no rebound, no rigidity. Assessment And Plan: 1.Severe gastroenteritis. Continue IV hydration. 2.Fever because of viral gastroenteritis. I do not see any clinical signs of bacterial infection ye t. Procalcitonin is normal. Continue hydration. Continue electrolyte supplementation. 3.Hypokalemia is being treated per protocol. LILI/MODL Voice ID: [id number] Report ID: [id number]
[2019-08-09] MEDS: NACHLORIDE 0.45% 1,000 ML IV SCH (05:00)
[2019-08-09 05:42] LABS: Absolute Lymphocytes (CBC) 0.7 K/uL (0.7-4.9); Basophils % 0.4 % (0-1.3); Hematocrit 35.8 % (39.6-49.0); Lymphocytes % 10.8 % (15.3-44.8); MPV 7.8 fL (7.6-11.3); RBC Red Blood Cell Count 4.08 M/uL (4.33-5.43)
[2019-08-09 06:01] LABS: Magnesium 2.1 mg/dL (1.8-2.4); Phosphorus 1.7 mg/dL (2.5-4.9); Potassium 3.9 mmol/L (3.5-5.1)
[2019-08-09] MEDS ORDERED: POTASSIUM CL SA 10 MEQ TAB PO ONE (06:34)
[2019-08-09] MEDS: POTASS/SODIUM PHOSPHATE 1 PKT POWD.PACK PO SCH ×3 (07:25→09:57)
[2019-08-09] MEDS ORDERED: DOCUSATE SODIUM 100 MG PO SCH (09:00)
[2019-08-09] MEDS ORDERED: CLOPIDOGREL 75 MG TABLET PO SCH ×2 (09:00)
[2019-08-09] MEDS ORDERED: FUROSEMIDE 20 MG TABLET PO SCH ×2 (09:00)
[2019-08-09] MEDS ORDERED: DOCUSATE NA 100 MG CAP PO SCH (09:00)
[2019-08-09] MEDS: FAMOTIDINE 20 MG PO SCH (09:00)
[2019-08-09] MEDS ORDERED: FERROUS SULFATE 325 MG TAB PO SCH ×2 (09:00)
[2019-08-09] MEDS ORDERED: AMLODIPINE 10 MG TAB PO SCH ×2 (09:00)
[2019-08-09 09:01] VITALS: BP 150/72; TEMP 98.1
[2019-08-09] MEDS: ENOXAPARIN 40 MG/0.4 ML SQ SCH (09:11)
[2019-08-09 10:05] VITALS: O2SAT 994
--- NOTE | 2019-08-10 01:28 | DS ---
Date of Discharge: 08/09/2019 Final Diagnosis: Viral gastroenteritis. Secondary Diagnoses: High blood pressure, hypokalemia. Hospital Course: The patient is an 83-year-old gentleman who comes in with severe nausea, vomiting, and diarrhea, being generally weak, not able to ambulate without assistance, was also found to have s evere hypokalemia, which was replaced according to protocol. In about 2 days, patient improved back to his baseline status, able to ambulate. Diarrhea has stopped, fever had stopped, nausea and vomiti ng have stopped. The patient was able to be discharged today in a stable condition. LILI/ARAMIS Voice ID: [id number] Report ID: [id number]
[2019-08-11 12:16] LABS: Vitamin D 1,25-Dihydroxy Total 47 pg/mL (18-72); Vitamin D,1,25-OH2, D2 <8 pg/mL
== END 2019-08-09 11:34 | disposition home health service (06) ==
LOC: 2ND 11:29
PROVIDERS: ADMIT Internal Medicine; ATTEND Internal Medicine
DX: A08.4 Viral intestinal infection, unspecified (principal); E87.6 Hypokalemia; Z28.21 Immunization not carried out because of patient refusal
CPT/HCPCS: 93005; 87040; 87088; 87045; 85025 ×3; 80048 ×3; 36415 ×3; 83735 ×3; 87205; 89055; 87177; 84100 ×3; 84132 ×3; 85610; 80076; 87046; 83605; 85730; 82652; 87209; 84443; 87324; 82607; 84145; 87449; 74019; 71046; 97116; 97161; J1650 ×2; J3475; J2405; G0379; G0378 ×4; 81003; 81015; 87086

== ENCOUNTER 2024-11-15 15:44 | Emergency (ER) | payer OTHER ==
--- OUTSIDE RECORDS SUMMARY | 2024-11-15 15:47 | XMS REPORT | Continuity of Care Document ---
Author Name Unknown Address [address] [place], [place] [address]ect Address [address] [place] [address] Care Team Providers Care Tapeman Name Role Phone Sunny Douglass Attending Clinician Unavailable Encounters Start Date/Time End Date/Time Encounter Type Admission Type Attending Clinicians Care Facility Care Department Encounter ID Source 2021-10-28 13:24:45 Outpatient Sunny Douglass [facility] [id number] [facility] 2021-10-28 12:44:55 Outpatient Sunny Douglass [facility] [id number] [facility]
[2024-11-15] MEDS ORDERED: ACETAMINOPHEN 500 MG TAB ONE (16:30)
[2024-11-15] MEDS ORDERED: TDAP (DIPHTH,PERTUSS(ACELL),TET VAC) 0.5 ML VIAL IMVAC ONE (16:30)
[2024-11-15] MEDS ORDERED: methocarbamoL 500 MG TAB ONE (16:30)
--- NOTE | 2024-11-15 17:37 | RAD REPORT ---
EXAMINATION: XR RIGHT SHOUDLER CLINICAL INDICATION: Male, 89 years old. shoulder injury RIGHT TECHNIQUE:Two view radiograph of the right shoulder were obtained. COMPARISON: No prior exam. FINDINGS: No acute bone or joint abnormality detected. Mild to moderate glenohumeral and AC joint deg enerative changes. IMPRESSION: No acute osseous abnormalities. Degenerative changes as above.
--- NOTE | 2024-11-15 17:37 | RAD REPORT ---
EXAMINATION: ONE VIEW CHEST XR CLINICAL INDICATION: Male, 89 years old.,GLF TECHNIQUE: Frontal chest projection is submitted. Examination is limited by patient positioning and t echnique. COMPARISON: 08/07/2019 FINDINGS: The lungs are well inflated and clear. No pneumothorax or sizable effusion. The heart is normal in s ize. Mediastinal contours are unremarkable. IMPRESSION: No acute intrathoracic abnormalities.
--- NOTE | 2024-11-15 17:56 | RAD REPORT ---
EXAMINATION: XR Elbow Right 3 View CLINICAL INDICATION: Male, 89 years old. GLF/injury RIGHT TECHNIQUE: 3 view radiographs of the right elbow were obtained. COMPARISON: No prior exam. FINDINGS: No evidence of fracture or dislocation. Normal alignment. No joint effusion. Mild scattered degenerative changes. No suspicious focal bone lesion. Soft tissues are unremarkable. IMPRESSION: No acute or significant abnormalities.
--- NOTE | 2024-11-15 17:59 | RAD REPORT ---
EXAM: CT Head Brain Wo Cont HISTORY: GLF, blood thinners COMPARISON: 04/17/2024 TECHNIQUE: Multiple contiguous axial images were obtained for a CT of the brain without contrast. Sag ittal and coronal reformats were performed. One or more of the following dose reduction techniques were used: Automated exposure control, adjus tment of the mA and kV according to patient size, and iterative reconstruction. Unless otherwise specified, incidental findings do not require dedicated imaging follow-up. FINDINGS: No evidence of hydrocephalus, intracranial hemorrhage, or extra-axial fluid collection. Mild diffuse parenchymal volume loss again seen. Subependymal focus of near CSF density along the lef t caudate head/proximal body is stable, suggesting a remote small infarct. Cavum septum pellucidum again seen. Bilateral basal ganglia areas of patchy hypoattenuation more pronounced on the left, stab le, could reflect sequelae of chronic small vessel ischemic changes, with and without prominent perivascular spaces. The brain is otherwise normal in morphology. The calvarium is intact. The visualized paranasal sinuses and mastoid air cells are essentially clear . IMPRESSION: No evidence of acute intracranial abnormality. Stable chronic findings as above.
--- NOTE | 2024-11-15 18:01 | EDPHYS ---
Physician Documentation [facility] Name: Bashir Patel Age: 89 yrs Sex: Male : 1935 Arrival Date: 11/15/2024 Time: 15:44 Bed IW1 Private MD: ED Physician Sukumar Cornejo HPI: 11/15 16:00 This 89 yrs old Male presents to ER via Ambulatory with complaints of Fall ec2 Injury. 16:00 Patient arrives today for evaluation of right shoulder pain after a GLF. Patient ec2 reports that he had tripped and fell. No LOC, states that he is on blood thinners, no head or neck pain. Denies prodromal symptoms. Patient reports no abdominal pain, no hip pain. Sustained a skin tear to the right elbow as well. Unsure of last tetanus shot.. Historical: - Allergies: 15:50 SHELLFISH; ll1 15:50 PENICILLINS; ll1 - PMHx: 15:50 bleeding ulcers; CAD; Hyperlipidemia; GERD; Hypertension; ll1 - Immunization history:: Adult Immunizations up to date. - Infectious Disease History:: Denies. - Immunization history: Last tetanus immunization: - up to date. - Social history:: Smoking status: Patient denies any tobacco usage or history of. ROS: 16:01 Constitutional: as per hpi ec2 Exam: 16:01 Constitutional: GEN: No acute distress HEENT: -Head: no deformities -Eyes: EOMI CV: ec2 regular rate LUNGS: no respiratory distress ABD: non-tender SKIN: no wounds appreciated MSK: No C/T/L spine deformities RUE w/o bony deformity, intact range of motion of the right upper extremity, TTP to the proximal humerus, right elbow abrasion noted, intact distal neurovascular status. LUE w/o bony deformity RLE w/o bony deformity LLE w/o bony deformity NEURO: moves all extremities equally, GCS 15 (E4, V5, M6) Vital Signs: 15:53 BP 181 / 78; Pulse 62; Resp 17; Temp 97.6; Pulse Ox 98% ; Weight 108.86 kg; Height 6 ll1 ft. 0 in. ; 18:14 BP 161 / 71; Pulse 60; Resp 16; Pulse Ox 98% on R/A; ll1 15:53 Body Mass Index 32.55 (108.86 kg, 182.88 cm) ll1 Nino Coma Score: 18:16 Eye Response: spontaneous(4). Motor Response: obeys commands(6). Verbal Response: ll1 oriented(5). Total: 15. Trauma Score (Adult): 18:16 Eye Response: spontaneous(1); Verbal Response: oriented(1); Motor Response: obeys ll1 commands(2); Systolic BP: > 89 mm Hg(4); Respiratory Rate: 10 to 29 per min(4); [place] Score: 15; Trauma Score: 12 MDM: 15:51 Medical Screening Exam initiated ec2 16:01 Data reviewed: vital signs, nurses notes. ED course: Patient arrives today for ec2 evaluation of right upper extremity pain after GLF. Examination yields well-appearing nontoxic individual was MSK examination as above given the blood thinners and the age, will obtain a CT scan of the head. Differential includes intracranial brain bleed, muscle contusion, bony fracture.. 11/15 15:59 Order name: CXR XRAY; Complete Time: 17:39 ec2 11/15 15:59 Order name: Shoulder Right (2 View) XRAY; Complete Time: 17:39 ec2 11/15 15:59 Order name: CT Head Brain wo Cont; Complete Time: 18:01 ec2 11/15 16:01 Order name: Elbow Right 3 View XRAY; Complete Time: 18:01 ec2 11/15 18:01 Order name: Sling; Complete Time: 18:14 ec2 Administered Medications: 16:35 Drug: Boostrix Tdap IM 0.5 ml IM once; as a single dose Route: IM; Site: left deltoid; ll1 18:14 Follow up: Response: No adverse reaction ll1 16:35 Drug: Methocarbamol PO 500 mg PO once Route: PO; ll1 18:14 Follow up: Response: No adverse reaction; Pain is decreased; RASS: Alert and Calm (0) ll1 16:35 Drug: Acetaminophen PO 1000 mg PO once Route: PO; ll1 18:14 Follow up: Response: No adverse reaction; Pain is decreased ll1 Disposition Summary: 11/15/24 18:01 Discharge Ordered Notes: Location: Home ec2 Condition: Stable ec2 Diagnosis - Pain in right shoulder ec2 Followup: ec2 - With: Private Physician - When: - Reason: Re-evaluation by your physician Discharge Instructions: - Discharge Summary Sheet ec2 - Joint Pain ec2 Forms: - Medication Reconciliation Form ec2 - Antibiotic Education ec2 - Prescription Opioid Use ec2 - Patient Portal Instructions ec2 - Leadership Thank You Letter ec2 Prescriptions: - methocarbamol 500 mg Oral tablet - take 1 tablet ORAL route 4 times per day; 20 tablet; Refills: 0, Product ec2 Selection Permitted Signatures: Dispatcher [employer] Sue Funes RN RN ll1 Sukumar Cornejo MD MD ec2 Corrections: (The following items were deleted from the chart) 16:00 16:00 Shoulder Right 2 View+RAD.RAD.BRZ ordered. EDMS EDMS 16:00 16:00 Head Brain Wo Cont+CT.RAD.BRZ ordered. EDMS EDMS
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
[2024-11-15 18:31] VITALS: TEMP 97.6; O2SAT 98
[2024-11-15 18:32] VITALS: BP 161/71
== END 2024-11-15 18:18 | disposition home or self-care (01) ==
LOC: ER 15:44
DX: M25.511 Pain in right shoulder (principal); S50.311A Abrasion of right elbow, initial encounter; W01.0XXA Fall on same level from slipping, tripping and stumbling without subsequent striking against object, initial encounter
CPT/HCPCS: 70450; 71045; 96372; 99285

== ENCOUNTER 2024-11-23 19:14 | Emergency (ER) | payer OTHER ==
--- OUTSIDE RECORDS SUMMARY | 2024-11-23 19:17 | XMS REPORT | Continuity of Care Document ---
Author Name Unknown Address [address] [place], [place] [address]ect Address [address] [place] [address] Care Team Providers Care Cloud Systems Architect Name Role Phone Sunny Douglass Attending Clinician Unavailable Encounters Start Date/Time End Date/Time Encounter Type Admission Type Attending Clinicians Care Facility Care Department Encounter ID Source 2021-10-28 13:24:45 Outpatient Sunny Douglass [facility] [id number] [facility] 2021-10-28 12:44:55 Outpatient Sunny Douglass [facility] [id number] [facility]
--- NOTE | 2024-11-23 20:26 | RAD REPORT ---
EXAM: Chest Single View HISTORY: DYSPNEA COMPARISON: 11/15/2024 FINDINGS: LUNGS/PLEURA: Low lung volumes. Left lung base is not well assessed as a result. MEDIASTINUM: The mediastinal silhouette is within normal limits. CARDIAC: The cardiac silhouette is within normal limits. UPPER ABDOMEN: No significant abnormality. BONES: No acute abnormality. LINES/TUBES/OTHER: N/A IMPRESSION: Low lung volumes. No definite acute process however the left lung base is not well assessed due to un derpenetration.
[2024-11-23 20:36] LABS: Absolute Eosinophils 0.1 K/uL (0-0.5); Absolute Monocytes 0.6 K/uL (0.1-1.3); Absolute Neutrophil 6.2 K/uL (1.8-8.0); Basophils % 0.3 % (0-1.3); Eosinophils % 1.1 % (0-4.4); Hemoglobin 13.8 g/dL (13.6-17.9); Lymphocytes % 12.3 % (15.3-44.8); MCH 27.5 pg (27.0-35.0); MCHC 32.8 g/dL (32.0-36.0); MCV 84.1 fL (80-100); MPV 7.4 fL (7.6-11.3); Monocytes % 8.1 % (3.3-12.3); Neutrophils % 78.2 % (41.7-73.7); Platelets 222 thou/uL (152-406); Red Cell Distribution Width 16.1 % (12.1-15.2)
[2024-11-23 20:39] LABS: PTT, Activated Partial Thromb 34.8 SECONDS (24.3-36.9); Protime INR 1.24
[2024-11-23 20:48] LABS: Albumin 3.3 g/dL (3.4-5.0); Albumin/Globulin Ratio 0.9 (1.1-1.8); Anion Gap 10.7 mEq/L (5.0-15.0); Globulin 3.5 g/dL (2.3-3.5); Potassium 3.7 mEq/L (3.5-5.1); Protein, Total 6.8 g/dL (6.4-8.2)
[2024-11-23 20:53] LABS: Influenza A Ag Negative; Influenza B Ag Negative; SARS-CoV-2 Antigen Rapid Res Negative (Negative)
[2024-11-23] MEDS ORDERED: IPRATROPIUM BROM 0.5MG/2.5ML ONE (22:39)
[2024-11-23] MEDS ORDERED: ALBUTEROL 2.5 MG/3 ML NEB SOL ONE (22:39)
--- NOTE | 2024-11-23 23:55 | EDPHYS ---
Physician Documentation [facility] Name: Bashir Patel Age: 89 yrs Sex: Male : 1935 Arrival Date: 11/23/2024 Time: 19:14 Bed 2 Private MD: ED Physician Wan Nelson HPI: 11/23 20:50 This 89 yrs old Male presents to ER via EMS with complaints of Shortness Of Breath. rt 20:50 Patient presents to the ED with an acute onset of dyspnea starting about 3 hours prior rt to arrival, the patient denies any cardiac, lung issues. States that symptoms have improved, not completely resolved. The patient denies other acute complaints at this time, symptoms are moderate in severity, no other aggravating or alleviating factors.. Historical: - Allergies: 19:35 PENICILLINS; vc1 19:35 SHELLFISH; vc1 - PMHx: 19:35 bleeding ulcers; CAD; GERD; Hypertension; Hyperlipidemia; vc1 - PSHx: 19:35 None; vc1 - Immunization history:: Client reports receiving the 1st dose of the Covid vaccine, Flu vaccine is not up to date. - Infectious Disease History:: Denies. - Social history:: Smoking status: Patient reports use of chewing tobacco. Patient/guardian denies using tobacco, but has a distant history of tobacco abuse. - Family history:: not pertinent. ROS: 20:50 Constitutional: Negative for fever, chills, and weight loss, Cardiovascular: Negative rt for chest pain, palpitations, and edema, Abdomen/GI: Negative for abdominal pain, nausea, vomiting, diarrhea, and constipation, MS/Extremity: Negative for injury and deformity, Skin: Negative for injury, rash, and discoloration, Neuro: Negative for headache, weakness, numbness, tingling, and seizure, 20:50 Respiratory: Positive for shortness of breath, Negative for cough, Exam: 20:50 Constitutional: This is a well developed, well nourished patient who is awake, alert, rt and in no acute distress. Head/Face: Normocephalic, atraumatic. Chest/axilla: Normal chest wall appearance and motion. Nontender with no deformity. No lesions are appreciated. Cardiovascular: Regular rate and rhythm with a normal S1 and S2. No gallops, murmurs, or rubs. Normal PMI, no JVD. No pulse deficits. Respiratory: Lungs have equal breath sounds bilaterally, clear to auscultation and percussion. No rales, rhonchi or wheezes noted. No increased work of breathing, no retractions or nasal flaring. Abdomen/GI: Soft, non-tender, with normal bowel sounds. No distension or tympany. No guarding or rebound. No evidence of tenderness throughout. Skin: Warm, dry with normal turgor. Normal color with no rashes, no lesions, and no evidence of cellulitis. MS/ Extremity: Pulses equal, no cyanosis. Neurovascular intact. Full, normal range of motion. 20:50 ECG was reviewed by the Attending Physician. Vital Signs: 19:25 BP 160 / 92; Pulse 84; Resp 20; Temp 99.4; Pulse Ox 98% on R/A; vc1 20:17 Weight 108.86 kg; Height 6 ft. 0 in. ; vc1 21:01 BP 167 / 83; Pulse 79; Resp 18; Pulse Ox 99% ; vc1 23:00 BP 184 / 82; Pulse 78; Resp 15; Pulse Ox 95% ; vc1 11/24 00:00 BP 185 / 88; Pulse 93; Resp 20; Pulse Ox 96% ; vc1 11/23 20:17 Body Mass Index 32.55 (108.86 kg, 182.88 cm) vc1 MDM: 11/23 20:02 Medical Screening Exam initiated rt 11/24 00:48 Differential diagnosis: Bronchospasm, CHF, pneumonia, viral syndrome. Data reviewed: rt vital signs, nurses notes, lab test result(s), EKG, radiologic studies. Consideration of Admission/Observation Escalation of care including admission/observation considered. Stable oxygenation, is ambulatory without difficulty, improving dyspnea after DuoNeb treatment. No indications for admission at this time, patient stable for outpatient care, return precautions discussed.. I considered the following discharge prescriptions or medication management in the emergency department Medications were administered in the Emergency Department. See MAR. Independent interpretation of the following test(s) in the Emergency Department X-Ray: My interpretation is No pneumonia, edema seen on my interpretation of x-ray images. Test considered but Not performed: CT: Low suspicion for pulmonary embolus, CT angiogram not indicated. Care significantly affected by the following chronic conditions: Hypertension. Counseling: I had a detailed discussion with the patient and/or guardian regarding the historical points, exam findings, and any diagnostic results supporting the discharge/admit diagnosis, lab results, radiology results, the need for outpatient follow up, to return to the emergency department if symptoms worsen or persist or if there are any questions or concerns that arise at home. Response to treatment: the patient's symptoms have markedly improved after treatment. 11/23 19:37 Order name: Blood Culture Adult (2) rn 11/23 19:37 Order name: CBC with Diff; Complete Time: 22:06 rn 11/23 19:37 Order name: CMP; Complete Time: 22:06 rn 11/23 19:37 Order name: Lactate w/ 2H reflex if indic.; Complete Time: 22:06 rn 11/23 19:37 Order name: Protime (+inr); Complete Time: 22: rn 11/23 19:37 Order name: Ptt, Activated; Complete Time: 22:06 rn 11/23 19:37 Order name: BNP; Complete Time: 22:06 rn 11/23 20:09 Order name: Influenza Screen (a \T\ B) rt 11/23 20:26 Order name: Glucose, Ancillary Testing; Complete Time: 20:27 EDMS 11/23 20:34 Order name: COVID-19 Ag + Flu A+B Ag; Complete Time: 22:06 EDMS 11/23 19:37 Order name: Chest Single View XRAY; Complete Time: 20:27 rn 11/23 19:37 Order name: Accucheck; Complete Time: 20:17 rn 11/23 19:37 Order name: Cardiac monitoring; Complete Time: 19:56 rn 11/23 19:37 Order name: EKG - Nurse/Tech; Complete Time: 19:56 rn 11/23 19:37 Order name: IV Saline Lock - Large Bore; Complete Time: 19:56 rn 11/23 19:37 Order name: Labs collected and sent; Complete Time: 20:17 rn 11/23 19:37 Order name: O2 Per Protocol; Complete Time: 19:56 rn 11/23 19:37 Order name: O2 Sat Monitoring; Complete Time: 19:56 rn 11/23 19:37 Order name: Vital Signs; Complete Time: 20:17 rn EC/21 20:50 Rate is 88 beats/min. Rhythm is regular, Normal Sinus Rhythm with No ectopy. QRS Sisters rt is Normal. NV interval is normal. QRS interval is normal. QT interval is normal. No Q waves. Clinical impression: NSR w/ Non-specific ST/T Changes. Administered Medications: 22:45 Drug: Albuterol Inhalation 2.5 mg Inhalation once Route: Inhalation; vc1 22:45 Drug: Ipratropium Inhalation Aerosol 0.5 mg Inhalation once Route: Inhalation; vc1 Point of Care Testing: Blood Glucose: 20:17 Blood Glucose: 107 mg/dL; vc1 Ranges: Critical Glucose Levels:Adult <50 mg/dl or >400 mg/dl <40 mg/dl or >180 mg/dl Disposition Summary: 11/23/24 23:54 Discharge Ordered Notes: Location: Home rt Problem: new rt Symptoms: have improved rt Condition: Stable rt Diagnosis - Dyspnea rt Followup: rt - With: Sunny Douglass MD - When: 2 - 3 days - Reason: Discharge Instructions: - Discharge Summary Sheet rt - Shortness of Breath, Adult rt Forms: - Medication Reconciliation Form rt - Antibiotic Education rt - Prescription Opioid Use rt - Patient Portal Instructions rt - Leadership Thank You Letter rt Prescriptions: - albuterol sulfate 90 mcg/actuation Inhalation HFA Aerosol Inhaler - inhale 3 puff INHALATION route every 3 hours as needed; 2 Each; Refills: 0, rt Product Selection Permitted - Prednisone 20 mg Oral Tablet - take 1 tablet ORAL route once daily for 5 days; 5 tablet; Refills: 0, Product rt Selection Permitted Signatures: Dispatcher [employer] EDMS Prem Neri MD MD rn Calcote, Vanessa, RN RN vc1 Wan Nelson MD MD rt Corrections: (The following items were deleted from the chart) 19:38 19:38 BLOOD CULTURE*+BA.LAB.BRZ ordered. EDMS EDMS 19:38 19:38 CBC+H.LAB.BRZ ordered. EDMS EDMS 19:38 19:38 COMPREHENSIVE METABOLIC PANEL+C.LAB.BRZ ordered. EDMS EDMS 19:38 19:38 LACTATE+C.LAB.BRZ ordered. EDMS EDMS 19:38 19:38 PROTIME (+INR)+COAG.LAB.BRZ ordered. EDMS EDMS 19:38 19:38 PTT, ACTIVATED+COAG.LAB.BRZ ordered. EDMS EDMS 19:38 19:38 PROBNP+C.LAB.BRZ ordered. EDMS EDMS :38 19:38 Chest Single View+RAD.RAD.BRZ ordered. EDMS EDMS 20:32 20:09 SARS-COV-2 Antigen Rapid+I.LAB.BRZ ordered. EDMS EDMS 20:33 20:31 Influenza Screen (A ordered. EDMS EDMS
--- NOTE | 2024-11-23 23:55 | ER ---
Nurse's Notes [facility] Name: Bashir Patel Age: 89 yrs Sex: Male : 1935 Arrival Date: 11/23/2024 Time: 19:14 Bed 2 Private MD: Diagnosis: Dyspnea Presentation: 11/23 19:25 Chief complaint: EMS states: started feeling SOB about 2 hours ago, vomited last night. vc1 19:25 Coronavirus screen: Client denies travel out of the [place] in the last 14 days. At this vc1 time, the client does not indicate any symptoms associated with coronavirus-19. Ebola Screen: Patient negative for fever greater than or equal to 101.5 degrees Fahrenheit, and additional compatible Ebola Virus Disease symptoms Patient denies exposure to infectious person. Patient denies travel to an Ebola-affected area in the 21 days before illness onset. No symptoms or risks identified at this time. Initial Sepsis Screen: Does the patient meet any 2 criteria? No. Patient's initial sepsis screen is negative. Does the patient have a suspected source of infection? No. Patient's initial sepsis screen is negative. Risk Assessment: Do you want to hurt yourself or someone else? Patient reports no desire to harm self or others. Onset of symptoms was November 23, 2024 at 17:30. Care prior to arrival: IV initiated. 22 GA, in the right hand, Glucose check: 94 Oxygen administered. via nasal cannula. 19:25 Method Of Arrival: EMS: [facility] vc1 19:25 Acuity: ARIANE 3 vc1 Triage Assessment: 20:18 General: Appears in no apparent distress. uncomfortable, obese, Behavior is calm, vc1 cooperative, appropriate for age. Pain: Denies pain. EENT: No deficits noted. No signs and/or symptoms were reported regarding the EENT system. Neuro: Level of Consciousness is awake, alert, obeys commands, Oriented to person, place, time, situation, Appropriate for age. Cardiovascular: Reports shortness of breath, vomiting, Denies chest pain, Capillary refill < 3 seconds Patient's skin is warm and dry. Respiratory: Reports shortness of breath Breath sounds are clear bilaterally. Onset: The symptoms/episode began/occurred suddenly, the patient has mild shortness of breath. GI: No deficits noted. No signs and/or symptoms were reported involving the gastrointestinal system. : No deficits noted. No signs and/or symptoms were reported regarding the genitourinary system. Derm: Skin is intact, is healthy with good turgor, Skin is dry, Skin is normal, Skin temperature is warm. Musculoskeletal: Circulation, motion, and sensation intact. Range of motion: intact in all extremities. Historical: - Allergies: 19:35 PENICILLINS; vc1 19:35 SHELLFISH; vc1 - PMHx: 19:35 bleeding ulcers; CAD; GERD; Hypertension; Hyperlipidemia; vc1 - PSHx: 19:35 None; vc1 - Immunization history:: Client reports receiving the 1st dose of the Covid vaccine, Flu vaccine is not up to date. - Infectious Disease History:: Denies. - Social history:: Smoking status: Patient reports use of chewing tobacco. Patient/guardian denies using tobacco, but has a distant history of tobacco abuse. - Family history:: not pertinent. Screenin:35 [facility] ED Fall Risk Assessment (Adult) History of falling in the last 3 months, vc1 including since admission No falls in past 3 months (0 pts) Confusion or Disorientation No (0 pts) Intoxicated or Sedated No (0 pts) Impaired Gait No (0 pts) Mobility Assist Device Used No (0 pt) Altered Elimination No (0 pt) Score/Fall Risk Level 0 - 2 = Low Risk Oriented to surroundings, Maintained a safe environment, Educated pt \T\ family on fall prevention, incl call for assistance when getting out of bed. Abuse screen: Denies threats or abuse. Nutritional screening: No deficits noted. Tuberculosis screening: No symptoms or risk factors identified. Assessment: 20:19 Cardiovascular: Rhythm is regular. Respiratory: Airway is patent Respiratory effort is vc1 even, unlabored. 21:02 Reassessment: Patient appears in no apparent distress at this time. No changes from vc1 previously documented assessment. Patient and/or family updated on plan of care and expected duration. Pain level reassessed. 23:45 General: Ambulated on room air, oxygen saturation stayed at 96%. vc1 11/24 00:25 Reassessment: Patient and/or family updated on plan of care and expected duration. Pain vc1 level reassessed. Patient is alert, oriented x 3, equal unlabored respirations, skin warm/dry/pink. Patient denies pain at this time. Patient states feeling better. Patient states symptoms have improved. Vital Signs: 11/23 19:25 BP 160 / 92; Pulse 84; Resp 20; Temp 99.4; Pulse Ox 98% on R/A; vc1 20:17 Weight 108.86 kg; Height 6 ft. 0 in. ; vc1 21:01 BP 167 / 83; Pulse 79; Resp 18; Pulse Ox 99% ; vc1 23:00 BP 184 / 82; Pulse 78; Resp 15; Pulse Ox 95% ; vc1 11/24 00:00 BP 185 / 88; Pulse 93; Resp 20; Pulse Ox 96% ; vc1 11/23 20:17 Body Mass Index 32.55 (108.86 kg, 182.88 cm) vc1 ED Course: 11/23 19:25 Patient arrived in ED. vk 19:35 Arm band placed on right wrist. vc1 19:35 Patient has correct armband on for positive identification. Bed in low position. Call vc1 light in reach. fuel tank sealer and tester on. Pulse ox on. NIBP on. 19:56 Wan Nelson MD is Attending Physician. rt 20:00 First set of blood cultures drawn by me. vk 20:10 Brenda Dawn RN is Primary Nurse. vc1 20:15 Triage completed. vc1 20:15 Second set of blood cultures drawn by me. vk 20:19 Chest Single View XRAY In Process Unspecified. EDMS 20:55 Blood Culture Adult (2) Sent. vk 20:56 Influenza Screen (a \T\ B) Sent. vk 20:57 Cleaned of incontinence. vk 20:57 Initial lab(s) drawn, by nh, sent to lab. Inserted saline lock: 22 gauge in right vk forearm, using aseptic technique. Blood collected. Flushed with 10 mL NS. 23:54 Sunny Douglass MD is Referral Physician. rt 23:56 IV discontinued, intact, bleeding controlled, No redness/swelling at site. Pressure vk dressing applied. 11/24 00:26 Provided Education on: albuterol. vc1 00:26 No provider procedures requiring assistance completed. vc1 00:26 IV discontinued, intact, bleeding controlled, No redness/swelling at site. Pressure vc1 dressing applied. Administered Medications: 11/23 22:45 Drug: Albuterol Inhalation 2.5 mg Inhalation once Route: Inhalation; vc1 22:45 Drug: Ipratropium Inhalation Aerosol 0.5 mg Inhalation once Route: Inhalation; vc1 Medication: 20:18 VIS not applicable for this client. vc1 Point of Care Testing: Blood Glucose: 20:17 Blood Glucose: 107 mg/dL; vc1 Ranges: Outcome: 23:54 Discharge ordered by . rt 11/24 00:26 Discharged to home via wheelchair, with family, with significant other, vc1 Condition: good Discharge instructions given to patient, Instructed on discharge instructions, follow up and referral plans. medication usage, Demonstrated understanding of instructions, follow-up care, medications, Prescriptions given X 2, 00:26 Patient left the ED. vc1 Signatures: Dispatcher [employer] EDMS Brenda Dawn RN RN vc1 Wan Nelson MD MD rt Yareli Slaughter Corrections: (The following items were deleted from the chart) 00:25 00:25 BP 185 / 88; Pulse 93bpm; Resp 96bpm; Pulse Ox 100%; vc1 vc1
[2024-11-24 12:00] VITALS: TEMP 99.4
[2024-11-24 12:03] VITALS: BP 185/88; O2SAT 96
--- NOTE | 2024-11-26 12:04 | EKG ---
Test Date: 2024-11-23 Test Time: 19:54:24 Molecular Pathologist: DORIE MEASUREMENT RESULTS: Intervals: Rate: 88 OK: 138 QRSD: 90 QT: 390 QTc: 471 [place]: P: 21 OK: 138 QRS: -19 T: 16 INTERPRETIVE STATEMENTS: Normal sinus rhythm Nonspecific ST abnormality Abnormal ECG Compared to ECG 08/07/2019 17:35:22 ST (T wave) deviation now present Sinus tachycardia no longer present Atrial premature complex(es) no longer present Ventricular premature complex(es) no longer present Myocardial infarct finding no longer present Electronically Signed On 11-26-24 12:04:17 HAIR AND MAKEUP DESIGNER by Nick Gee
== END 2024-11-24 00:26 | disposition home or self-care (01) ==
LOC: ER 19:14
DX: R06.00 Dyspnea, unspecified (principal); F17.220 Nicotine dependence, chewing tobacco, uncomplicated; Z11.52 Encounter for screening for COVID-19
CPT/HCPCS: 93005; 87040 ×2; 85025; 36415; 85610; 82947; 83605; 85730; 80053; 83880; 71045; 99285; 87428; J7613; J7644

== ENCOUNTER 2024-12-18 11:10 | Inpatient (IN) | payer OTHER ==
--- OUTSIDE RECORDS SUMMARY | 2024-12-18 11:12 | XMS REPORT | Continuity of Care Document ---
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 [id number] [facility] 2021-10-28 12:44:55 [address]lass [facility] [id number] [facility]
[2024-12-18 11:59] LABS: Absolute Basophils 0.1 K/uL (0-0.5); Absolute Eosinophils 0.2 K/uL (0-0.5); Absolute Lymphocytes (CBC) 0.8 K/uL (0.7-4.9); Absolute Monocytes 0.7 K/uL (0.1-1.3); Absolute Neutrophil 6.9 K/uL (1.8-8.0); Basophils % 0.7 % (0-1.3); Eosinophils % 2.4 % (0-4.4); Hematocrit 36.7 % (39.6-49.0); Hemoglobin 12.3 g/dL (13.6-17.9); Lymphocytes % 8.8 % (15.3-44.8); MCH 28.2 pg (27.0-35.0); MCHC 33.6 g/dL (32.0-36.0); MCV 83.7 fL (80-100); MPV 7.3 fL (7.6-11.3); Monocytes % 8.1 % (3.3-12.3); Platelets 181 thou/uL (152-406); RBC Red Blood Cell Count 4.38 M/uL (4.33-5.43); Red Cell Distribution Width 16.3 % (12.1-15.2)
[2024-12-18 12:04] LABS: PT Prothrombin Time 13.1 SECONDS (10-13.0); Protime INR 1.16
[2024-12-18 12:22] LABS: Anion Gap 7.7 mEq/L (5.0-15.0); Bilirubin Direct 0.2 mg/dL (0-0.2); Bilirubin Indirect, Calculated 0.7 mg/dL (0.2-0.8); Bilirubin Total 0.9 mg/dL (0.2-1.0); Globulin 2.9 g/dL (2.3-3.5); Magnesium 2.1 mg/dL (1.6-2.4); Potassium 3.7 mEq/L (3.5-5.1); Protein, Total 5.9 g/dL (6.4-8.2); Troponin High Sensitivity 18.6 pg/mL (<58.9)
--- NOTE | 2024-12-18 13:06 | RAD REPORT ---
EXAMINATION: CT HEAD WITHOUT CONTRAST CT CERVICAL SPINE WITHOUT CONTRAST CLINICAL INDICATION: Head and neck injury status post fall. Head and neck pain TECHNIQUE: Axial CT images from the skull base to the vertex without intravenous contrast. Axial CT i mages through the cervical spine were obtained without intravenous contrast. Sagittal and coronal reformatted images were created from the data set. Coronal and sagittal reformatted images were creat ed from the data set. One or more of the following dose reduction techniques were used: Automated exposure control, adjustment of the mA and/or kV according to patient size, and/or iterative reconstr uction. Unless otherwise specified, incidental findings do not require dedicated imaging follow-up. [id number]. Comparison: 2023 FINDINGS: An intracranial bleed is not seen. Ventricles are normal in caliber. 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 No extra-axial fluid collection. No fluid within the sinuses/mastoids No fracture or dislocation is seen involving the cervical spine. Spondylosis cervical spine. Stable l ucency C2. IMPRESSION: No acute intracranial abnormality noted A cervical fracture is not seen. If the patient continues to have symptoms to suggest acute ENROLLMENT ELIGIBILITY REPRESENTATIVE/spinal pathology then MRI would be rec ommended
--- NOTE | 2024-12-18 13:07 | RAD REPORT ---
Procedure: Chest Single View HISTORY: Chest pain COMPARISON: November 2024 FINDINGS: The lungs appear grossly clear. No significant pleural effusion noted. The heart is mildly enlarged.
[2024-12-18] MEDS ORDERED: ACETAMINOPHEN 500 MG TAB PO PRN (13:56)
--- NOTE | 2024-12-18 13:56 | ER ---
Nurse's Notes [facility] Name: Bashir Patel Age: 89 yrs Sex: Male : 1935 Arrival Date: 12/18/2024 Time: 11:10 Bed 6 Private MD: Diagnosis: Dizziness;Fall on same level, unspecified;Essential (primary) hypertension;Anemia, unspecified;Chronic kidney disease, unspecified Presentation: 12/18 11:32 Chief complaint: EMS states: toned out to patient home for fall. Pt reports dizziness ld1 upon standing - fell yesterday night and this morning. Pt reports falling at 0300 - was unable to get off of floor. found patient this morning. Chronic pain to back. Coronavirus screen: At this time, the client does not indicate any symptoms associated with coronavirus-19. Ebola Screen: No symptoms or risks identified at this time. Initial Sepsis Screen: Does the patient meet any 2 criteria? No. Patient's initial sepsis screen is negative. Does the patient have a suspected source of infection? No. Patient's initial sepsis screen is negative. Risk Assessment: Do you want to hurt yourself or someone else? Patient reports no desire to harm self or others. Onset of symptoms was December 18, 2024. 11:32 Method Of Arrival: EMS: [facility] ld1 11:32 Acuity: ARIANE 3 ld1 Triage Assessment: 11:34 General: Appears in no apparent distress. comfortable, Behavior is calm, cooperative, ld1 appropriate for age. Pain: Complains of pain in back Pain does not radiate. Pain currently is 8 out of 10 on a pain scale. Quality of pain is described as throbbing, Pain began 1 day ago. Is continuous. EENT: No signs and/or symptoms were reported regarding the EENT system. Neuro: Level of Consciousness is awake, alert, obeys commands, Oriented to person, place, time, situation, Appropriate for age. Neuro: Reports dizziness. Cardiovascular: Capillary refill < 3 seconds Patient's skin is warm and dry. Respiratory: Airway is patent Respiratory effort is even, unlabored. GI: Abdomen is flat, non-distended. : No signs and/or symptoms were reported regarding the genitourinary system. Derm: No signs and/or symptoms reported regarding the dermatologic system. Musculoskeletal: No signs and/or symptoms reported regarding the musculoskeletal system. Historical: - Allergies: 11:24 PENICILLINS; ld1 11:24 SHELLFISH; ld1 - PMHx: 11:24 bleeding ulcers; Hypertension; Hyperlipidemia; CAD; GERD; ld1 - Immunization history:: Adult Immunizations up to date. - Infectious Disease History:: Denies. - Social history:: Smoking status: Patient denies any tobacco usage or history of. Screenin:37 [facility] ED Fall Risk Assessment (Adult) History of falling in the last 3 months, ld1 including since admission Yes- single mechanical fall (1 pt) Confusion or Disorientation No (0 pts) Intoxicated or Sedated No (0 pts) Impaired Gait No (0 pts) Mobility Assist Device Used No (0 pt) Altered Elimination No (0 pt) Score/Fall Risk Level 0 - 2 = Low Risk Oriented to surroundings, Hourly rounding (assess needs \T\ fall precautionary measures) done. Abuse screen: Denies threats or abuse. Denies injuries from another. Nutritional screening: No deficits noted. Tuberculosis screening: No symptoms or risk factors identified. Assessment: 11:37 Reassessment: See triage assessment. ld1 Vital Signs: 11:32 BP 162 / 60; Pulse 52; Resp 18; Pulse Ox 96% on R/A; Weight 102.97 kg; Height 6 ft. 0 ld1 in. ; Pain 8/10; 12:28 BP 155 / 90; Pulse 50; Resp 18; Pulse Ox 96% on R/A; ld1 13:42 BP 159 / 76; Pulse 54; Resp 18; Pulse Ox 94% on R/A; ld1 14:00 BP 176 / 84 Supine; Pulse 57; ld1 14:03 BP 165 / 77 Sitting; Pulse 67; ld1 14:08 BP 146 / 82 Standing; Pulse 80; ld1 11:32 Body Mass Index 30.79 (102.97 kg, 182.88 cm) ld1 11:32 Pain Scale: Adult ld1 ED Course: 11:12 Patient arrived in ED. bd 11:20 Dario Valencia DO is Attending Physician. ms3 11:23 Erlinda Valencia, RN is Primary Nurse. ld1 11:34 Triage completed. ld1 11:34 Arm band placed on right wrist. ld1 11:37 Patient has correct armband on for positive identification. Placed in gown. Bed in low ld1 position. Call light in reach. Side rails up X2. Pulse ox on. NIBP on. Door closed. Noise minimized. Warm blanket given. 11:37 No provider procedures requiring assistance completed. ld1 11:37 Maintain EMS IV. Dressing intact. Good blood return noted. Site clean \T\ dry. Gauge \T\ ld 1 site: 18g rac. 11:49 Basic Metabolic Panel Sent. bc6 11:49 CBC with Diff Sent. bc6 11:49 LFT's Sent. bc6 11:49 Magnesium Sent. bc6 11:49 PT-INR Sent. bc6 11:49 Troponin HS Sent. bc6 11:49 Initial lab(s) drawn, by me, sent to lab. bc6 11:55 CT Head C Spine In Process Unspecified. EDMS 12:07 XRAY Chest (1 view) In Process Unspecified. EDMS 13:52 Sunny Douglass MD is Hospitalizing Provider. ms3 21:13 Provided Education on: need for admit. cm10 21:13 Patient admitted, IV remains in place. cm10 Administered Medications: 15:26 Drug: NS 0.9% IV 500 ml 500 ml IV at 1 bolus once; to be given as a bolus over 30 ld1 minutes Volume: 500 ml; Route: IV; Rate: 1 bolus; Site: right antecubital; 16:06 Follow up: IV Status: Completed infusion; IV Intake: 500ml 10 Medication: 11:37 VIS not applicable for this client. ld1 Intake: 16:06 IV: 500ml; Total: 500ml. 10 Outcome: 13:55 Decision to Hospitalize by Provider. ms3 21:13 Patient left the ED. cm10 21:13 Admitted to Med/surg accompanied by tech, via stretcher, cm10 21:13 Condition: stable 21:13 Instructed on the need for admit, Signatures: Dispatcher [employer] EDPeace Bucio Marcus, DO DO ms3 Erlinda Valencia, RN RN ld1 Michelle Hernandez bc6 Shaylee Hobson RN RN cm10
--- NOTE | 2024-12-18 13:56 | EDPHYS ---
Physician Documentation [facility] Name: Bashir Patel Age: 89 yrs Sex: Male : 1935 Arrival Date: 12/18/2024 Time: 11:10 Bed 6 Private MD: ED Physician Dario Valencia HPI: 12/18 11:35 This 89 yrs old Male presents to ER via EMS with complaints of Fall Injury. ms3 11:35 89-year-old male with past medical history of peptic ulcer disease, hypertension, ms3 hyperlipidemia, coronary artery disease, GERD presents to the emergency department via [facility] after falling last night and again at 3 AM. EMS states on their arrival patient was on the floor. Patient states he is on the floor since 3 AM. Patient denies pain at this time. Patient denies any alleviating or inciting factors. Patient notes he fell secondary to dizziness. Patient denies dizziness during exam.. Historical: - Allergies: 11:24 PENICILLINS; ld1 11:24 SHELLFISH; ld1 - PMHx: 11:24 bleeding ulcers; Hypertension; Hyperlipidemia; CAD; GERD; ld1 - Immunization history:: Adult Immunizations up to date. - Infectious Disease History:: Denies. - Social history:: Smoking status: Patient denies any tobacco usage or history of. ROS: 11:35 Constitutional: Negative for fever, and chills. Cardiovascular: Negative for chest ms3 pain, and palpitations. Respiratory: Negative for shortness of breath, cough, wheezing, and pleuritic chest pain, Abdomen/GI: Negative for abdominal pain, nausea, vomiting, diarrhea, and constipation, 11:35 MS/Extremity: Negative for injury and deformity, Skin: Negative for injury, rash, and discoloration, 11:35 Neuro: Positive for dizziness, Exam: 11:35 Constitutional: This is a well developed, well nourished patient who is awake, alert, ms3 and in no acute distress. Cardiovascular: Regular rate and rhythm with a normal S1 and S2. No gallops, murmurs, or rubs. Normal PMI, no JVD. No pulse deficits. Respiratory: Lungs have equal breath sounds bilaterally, clear to auscultation and percussion. No rales, rhonchi or wheezes noted. No increased work of breathing, no retractions or nasal flaring. Abdomen/GI: Soft, non-tender, with normal bowel sounds. No distension or tympany. No guarding or rebound. No evidence of tenderness throughout. 11:35 MS/ Extremity: Pulses equal, no cyanosis. Neurovascular intact. Full, normal range of motion. 11:35 Skin: Ecchymosis left arm. 12:00 ECG was reviewed by the Attending Physician. ms3 Vital Signs: 11:32 BP 162 / 60; Pulse 52; Resp 18; Pulse Ox 96% on R/A; Weight 102.97 kg; Height 6 ft. 0 ld1 in. ; Pain 8/10; 12:28 BP 155 / 90; Pulse 50; Resp 18; Pulse Ox 96% on R/A; ld1 13:42 BP 159 / 76; Pulse 54; Resp 18; Pulse Ox 94% on R/A; ld1 14:00 BP 176 / 84 Supine; Pulse 57; ld1 14:03 BP 165 / 77 Sitting; Pulse 67; ld1 14:08 BP 146 / 82 Standing; Pulse 80; ld1 11:32 Body Mass Index 30.79 (102.97 kg, 182.88 cm) ld1 11:32 Pain Scale: Adult ld1 MDM: 11:35 Medical Screening Exam initiated ms3 11:35 Differential diagnosis: abrasion, closed head injury, contusion, fracture, sprain, ms3 strain, Arrhythmia versus electrolyte abnormality. 13:59 ED course: Discussed case with Dr Douglass and he accepts patient as observation. He would ms3 like orthostatic blood pressures obtained.. 14:00 Data reviewed: vital signs, nurses notes, lab test result(s), EKG, radiologic studies, ms3 and as a result, I will admit patient. Consideration of Admission/Observation Patient was admitted/placed on observation. Management of patient was discussed with the following: Hospitalist: Dr Douglass. Independent interpretation of the following test(s) in the Emergency Department EKG: See my EKG interpretation above. Historians other than the Patient: EMS: . Counseling: I had a detailed discussion with the patient and/or guardian regarding the historical points, exam findings, and any diagnostic results supporting the discharge/admit diagnosis, lab results, radiology results, the need for further work-up and treatment in the hospital. 12/18 11:35 Order name: Basic Metabolic Panel; Complete Time: 12:39 ms3 12/18 11:35 Order name: CBC with Diff; Complete Time: 12:39 ms3 12/18 11:35 Order name: LFT's; Complete Time: 12:39 ms3 12/18 11:35 Order name: Magnesium; Complete Time: 12:39 ms3 12/18 11:35 Order name: PT-INR; Complete Time: 12:39 ms3 12/18 11:35 Order name: Troponin HS; Complete Time: 12:39 ms3 12/18 14:00 Order name: CBC with Automated Diff EDMS 12/18 14:00 Order name: CBC with Automated Diff EDMS 12/18 14:00 Order name: Comprehensive Metabolic Panel EDMS 12/18 14:00 Order name: Comprehensive Metabolic Panel EDMS 12/18 11:35 Order name: XRAY Chest (1 view); Complete Time: 13:12 ms3 12/18 11:35 Order name: CT Head C Spine; Complete Time: 13:12 ms3 12/18 11:35 Order name: EKG; Complete Time: 11:35 ms3 12/18 11:35 Order name: Cardiac monitoring; Complete Time: 11:50 ms3 12/18 11:35 Order name: EKG - Nurse/Tech; Complete Time: 11:50 ms3 12/18 11:35 Order name: IV Saline Lock; Complete Time: 11:43 ms3 12/18 11:35 Order name: Labs collected and sent; Complete Time: 11:49 ms3 12/18 11:35 Order name: O2 Per Protocol; Complete Time: 11:43 ms3 12/18 11:35 Order name: O2 Sat Monitoring; Complete Time: 11:43 ms3 EC:00 Rate is 51 beats/min. Rhythm is regular. Left axis deviation noted. SD interval is ms3 normal. QRS interval is normal. Clinical impression: Sinus bradycardia. Interpreted by me. Reviewed by me. Administered Medications: 15:26 Drug: NS 0.9% IV 500 ml 500 ml IV at 1 bolus once; to be given as a bolus over 30 ld1 minutes Volume: 500 ml; Route: IV; Rate: 1 bolus; Site: right antecubital; 16:06 Follow up: IV Status: Completed infusion; IV Intake: 500ml cm10 Disposition Summary: 12/18/24 13:55 Hospitalization Ordered Notes: Hospitalization Status: Observation ms3 Provider: Sunny Douglass ms3 Condition: Stable ms3 Problem: new ms3 Symptoms: are unchanged ms3 Bed/Room Type: Standard ms3 Location: Telemetry/MedSurg (Inpatient)(12/18/24 19:38) sp Room Assignment: 218(12/18/24 19:38) sp Diagnosis - Dizziness ms3 - Fall on same level, unspecified ms3 - Essential (primary) hypertension ms3 - Anemia, unspecified ms3 - Chronic kidney disease, unspecified ms3 Forms: - Medication Reconciliation Form ms3 - SBAR form ms3 - Leadership Thank You Letter ms3 Signatures: Dispatcher [employer] EDMS Yara Sy Marcus, DO ms3 Erlinda Valencia RN RN ld1 Verito Jamison RN RN kb3 Shaylee Hobson RN cm10 Corrections: (The following items were deleted from the chart) 11:35 11:35 Head C Spine MPR Wo Con+CT.RAD.BRZ ordered. EDMS EDMS 14:58 13:55 Telemetry/MedSurg (observation) ms3 kb3 14:58 13:55 ms3 kb3 19:38 14:58 [facility] ER HOLD kb3 sp 19:38 14:58 ERHOLD- kb3 sp
[2024-12-18] MEDS: NACHLORIDE 0.45% 1,000 ML IV SCH (19:00)
[2024-12-18] MEDS ORDERED: NACHLORIDE 0.45% 1,000 ML IV ONE (19:03)
[2024-12-19 04:23] VITALS: O2SAT 94
[2024-12-19 05:09] LABS: Absolute Eosinophils 0.3 K/uL (0-0.5); Absolute Lymphocytes (CBC) 0.9 K/uL (0.7-4.9); Absolute Monocytes 0.5 K/uL (0.1-1.3); Absolute Neutrophil 5.3 K/uL (1.8-8.0); Basophils % 0.7 % (0-1.3); Eosinophils % 4.9 % (0-4.4); Hematocrit 36.6 % (39.6-49.0); Hemoglobin 12.4 g/dL (13.6-17.9); Lymphocytes % 12.1 % (15.3-44.8); MCH 28.5 pg (27.0-35.0); MCHC 33.8 g/dL (32.0-36.0); MCV 84.2 fL (80-100); MPV 7.3 fL (7.6-11.3); Monocytes % 7.6 % (3.3-12.3); Neutrophils % 74.7 % (41.7-73.7); Nucleated Red Blood Cells % 0.1 % (0-0); Platelets 189 thou/uL (152-406); RBC Red Blood Cell Count 4.34 M/uL (4.33-5.43); Red Cell Distribution Width 16.4 % (12.1-15.2)
[2024-12-19 05:19] LABS: Albumin 2.9 g/dL (3.4-5.0); Anion Gap 5.7 mEq/L (5.0-15.0); Globulin 2.9 g/dL (2.3-3.5); Potassium 3.7 mEq/L (3.5-5.1); Protein, Total 5.8 g/dL (6.4-8.2)
[2024-12-19] MEDS: PNEUMOCOCCAL VACCINE 0.5 ML IMVAC ONE (08:00)
[2024-12-19] MEDS: AMLODIPINE 10 MG TAB PO SCH (09:38)
[2024-12-19] MEDS: VALSARTAN 40 MG TAB PO SCH (09:39)
--- NOTE | 2024-12-19 12:30 | EKG ---
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
[2024-12-19] MEDS ORDERED: CYCLOBENZAPRINE 10 MG TAB PO PRN (12:56)
--- NOTE | 2024-12-19 13:12 | P.HP ---
Patient History Date of Service: 12/19/24 Reason for admission: FALLEN TWICE History of Present Illness: CHANDLER IS 89 YEARS OLD GM WITH ARTHRITIS, HTN WHO IS SLOWLY MORE DECONDITIONED. HE FALLS TWICE AT HOME. I HAD ER CHECK ORTHOSTATICS AND HE IS NOT DROPPING BP ON STANDING UP. HE IS HERE FOR MRI AND PT TO DECIDE SAFETY. Allergies Penicillins Allergy (Mild, Verified 08/07/19 12:01) Shortness of breath iodine Allergy (Verified 08/07/19 12:01) Shortness of breath SHELLFISH Allergy (Mild, Uncoded 08/07/19 12:01) Rash Home Medications: Amlodipine [Norvasc*] 10 mg PO DAILY 08/07/19 Clopidogrel Bisulfate [Plavix*] 75 mg PO DAILY 08/07/19 Cyclobenzaprine [Flexeril*] 10 mg PO TID PRN 08/07/19 Docusate [Colace Cap*] 100 mg PO DAILY 08/07/19 Famotidine [Pepcid*] 20 mg PO BID 08/07/19 Ferrous Sulfate [Iron] 325 mg PO DAILY 08/07/19 Furosemide [Lasix] 20 mg PO DAILY 08/07/19 Gabapentin 300 mg PO BEDTIME 08/07/19 L.acidoph,Paracasei, B.lactis [Probiotic] 1 each PO BEDTIME 08/07/19 Metoprolol Succinate 50 mg PO DAILY 08/07/19 Pravastatin Sodium 80 mg PO DAILY 08/07/19 Tamsulosin [Flomax*] 0.4 mg PO TID 08/07/19 Trazodone HCl 100 mg PO BEDTIME 08/07/19 Venlafaxine HCl 75 mg PO DAILY 08/07/19 cloNIDine HCL [Catapres] 0.1 mg PO Q2H PRN 08/07/19 - Past Medical/Surgical History Has patient received pneumonia vaccine in the past: No Diabetic: No -: htn -: hyperlipidemia -: gerd - Family History Father -: Heart disease Mother Notes: old age - Social History Smoking Status: Former smoker Alcohol use: No CD- Drugs: No Caffeine use: No Review of Systems 10-point ROS is otherwise unremarkable General: Weakness Physical Examination - Vital Signs Temperature: 98.5 F Blood Pressure: 195/87 Pulse: 99 Respirations: 18 Pulse Ox (%): 94 - Physical Exam General: Mild distress, Obese HEENT: Atraumatic, PERRLA, Mucous membr. moist/pink, EOMI, Sclerae nonicteric Neck: Supple, 2+ carotid pulse no bruit, No LAD, Without JVD or thyroid abnormality Respiratory: Clear to auscultation bilaterally, Normal air movement Cardiovascular: Regular rate/rhythm, Normal S1 S2 Gastrointestinal: Normal bowel sounds, No tenderness Musculoskeletal: No tenderness Integumentary: No rashes Neurological: Normal gait, Normal speech, Normal strength at 5/5 x4 extr, Normal tone, Normal affect Lymphatics: No axilla or inguinal lymphadenopathy Assessment and Plan - Problems (Diagnosis) (1) Frequent falls Current Visit: Yes Status: Acute Plan: LIKELY ORTHOSTATIC HYPOTENSION - SO FAR RULED OUT LIKELY DECONDITIONED WITH MILD DEHYDRATION. CHECK MRI FOR STROKE. OT, PT CONSULT. NO ARRHHTMIA FOUND. (2) Dehydration Current Visit: No Status: Acute - Advance Directives Does patient have a Living Will: No Does patient have a Durable POA for Healthcare: No
--- NOTE | 2024-12-19 13:30 | P.PN ---
Subjective Date of Service: 12/19/24 Chief Complaint: FALLEN TWICE Subjective: Improving I SAW HIM IN ER LAST NIGHT AND TODAY ON THE FLOOR. HE LOOKS A LITTLE BETTER DEHYDRATION HAS IMPROVED. Review of Systems 10-point ROS is otherwise unremarkable General: Weakness Physical Examination - Vital Signs Temperature: 98.5 F Blood Pressure: 195/87 Pulse: 99 Respirations: 18 Pulse Ox (%): 94 - Physical Exam General: Alert, In no apparent distress HEENT: Atraumatic, PERRLA, EOMI Neck: Supple, JVD not distended Respiratory: Clear to auscultation bilaterally, Normal air movement Cardiovascular: Regular rate/rhythm, Normal S1 S2 Gastrointestinal: Normal bowel sounds, No tenderness Musculoskeletal: No tenderness Integumentary: No rashes Neurological: Normal speech, Normal tone, Normal affect Lymphatics: No axilla or inguinal lymphadenopathy - Studies Medications List Reviewed: Yes Assessment And Plan - Current Problems (Diagnosis) (1) Frequent falls Current Visit: Yes Status: Acute Plan: LIKELY ORTHOSTATIC HYPOTENSION - SO FAR RULED OUT LIKELY DECONDITIONED WITH MILD DEHYDRATION. CHECK MRI FOR STROKE. OT, PT CONSULT. NO ARRHHTMIA FOUND. MRI TODAY. PT AWAITED. (2) Dehydration Current Visit: No Status: Acute
[2024-12-19] MEDS: LORAZEPAM 0.5 MG TABLET PO ONE (14:07)
--- NOTE | 2024-12-19 15:55 | RAD REPORT ---
EXAMINATION: Brain Wo Cont CLINICAL INDICATION: Male, 89 years old. vertigo with fall TECHNIQUE: Multiplanar multisequence MR images of the brain were obtained without intravenous contras t. Unless otherwise specified, incidental findings do not require dedicated imaging follow-up. [id number]. COMPARISON: 12/18/2024 FINDINGS: INTRACRANIAL: No acute infarct identified. No significant mass effect or midline shift.No hydrocepha emerald. Moderate chronic small vessel ischemic changes.Bilateral basal ganglia mineralization. Moderate cerebral atrophy. VASCULATURE: Normal signal voids in the larger intracranial arteries and dural venous sinuses. SINUSES: The paranasal sinuses are predominantly clear.No mastoid effusions. BONE: The marrow signal pattern is within normal limits. IMPRESSION: No acute intracranial abnormality. Specifically, no evidence of acute infarct. Chronic findings as no missy above.
[2024-12-19] MEDS: cloNIDine HCL 0.1 MG TAB PO PRN (17:00)
[2024-12-19] MEDS: TRAZODONE 50 MG TABLET PO SCH (20:52)
[2024-12-19] MEDS: GABAPENTIN 300 MG CAP PO SCH (20:52)
[2024-12-19] MEDS: ATORVASTATIN 10 MG TAB PO SCH (20:53)
[2024-12-19] MEDS ORDERED: HOME MED 1 EA UNK (Trazodone Hcl [Trazodone Hcl] 100 MG Tablet) PO SCH (21:00)
[2024-12-19] MEDS: TAMSULOSIN 0.4 MG SR CAP PO SCH (21:23)
[2024-12-20] MEDS: FUROSEMIDE 20 MG TABLET PO SCH (08:44)
[2024-12-20] MEDS: CLOPIDOGREL 75 MG TABLET PO SCH (08:44)
[2024-12-20] MEDS: FERROUS SULFATE 325 MG TAB PO SCH (08:46)
[2024-12-20] MEDS: DOCUSATE NA 100 MG CAP PO SCH (08:46)
[2024-12-20] MEDS: ESCITALOPRAM 20 MG TAB PO SCH (08:46)
[2024-12-20] MEDS: AMLODIPINE 10 MG TAB PO SCH (08:47)
[2024-12-20] MEDS ORDERED: HOME MED 1 EA UNK (Pravastatin Sodium [Pravastatin Sodium] 80 MG Tablet) PO SCH (09:00)
[2024-12-20] MEDS: METOPROLOL XL 50 MG TAB PO SCH (09:00)
[2024-12-20 09:07] VITALS: TEMP 98.8
[2024-12-20] MEDS: VENLAFAXINE HCL 75 MG TABLET PO SCH (09:19)
[2024-12-20] MEDS: VALSARTAN 160 MG TAB PO SCH (09:19)
[2024-12-20 10:50] VITALS: BMI 4432.8
[2024-12-20 11:29] VITALS: BP 156/74
[2024-12-20] MEDS ORDERED: FAMOTIDINE 20 MG/2 ML VIAL IV SCH (12:00)
--- NOTE | 2024-12-20 13:06 | P.DS ---
Admission Date: 12/18/24 Discharge Date: 12/20/24 Disposition: ROUTINE DISCHARGE Discharge Condition: FAIR Reason for Admission: FALLEN TWICE - Problems (1) Frequent falls Current Visit: Yes Status: Acute (2) Dehydration Current Visit: No Status: Acute Brief History of Present Illness: CHANDLER IS 89 YEARS OLD GM WITH ARTHRITIS, HTN WHO IS SLOWLY MORE DECONDITIONED. HE FALLS TWICE AT HOME. I HAD ER CHECK ORTHOSTATICS AND HE IS NOT DROPPING BP ON STANDING UP. HE IS HERE FOR MRI AND PT TO DECIDE SAFETY. Hospital Course: CHANDLER IS 89 YO GM WHO COMES WITH FALL AND WAS FOUND SLIGHT DEHYDRATION. HE IS LOT BETTER, ABLE TO AMBULATE WITH NO MAJOR ASSITANCE. HIS MRI BRAIN SHOWS NO STROKE. IV FLUIDS HELPED. HE HAS SOME NAUSEA THIS AM. HE DID GET PEPCID AND WILL GO HOME ONCE STABLE. HE HAS NO CHEST PAIN. THERE IS REMOTE POSSIBILITY OF ATYPICAL SEIZURE RELATED SYNCOPE AND WILL GET OUTPATIENT NEURO EVAL IF NEEDED. Vital Signs/Physical Exam: Temp Pulse Resp BP Pulse Ox 98.8 F 92 H 13 156/74 H 95 12/20/24 11:29 12/20/24 11:29 12/20/24 11:29 12/20/24 11:29 12/20/24 11:29 General: Alert, In no apparent distress HEENT: Atraumatic, PERRLA, EOMI Neck: Supple, JVD not distended Respiratory: Clear to auscultation bilaterally, Normal air movement Cardiovascular: Regular rate/rhythm, Normal S1 S2 Gastrointestinal: Normal bowel sounds, No tenderness Musculoskeletal: No tenderness Integumentary: No rashes Neurological: Normal speech, Normal tone, Normal affect Lymphatics: No axilla or inguinal lymphadenopathy Laboratory Data at Discharge: WBC 7.10 thou/uL (4.3-10.9) 12/19/24 04:47 Hgb 12.4 g/dL (13.6-17.9) L 12/19/24 04:47 Hct 36.6 % (39.6-49.0) L 12/19/24 04:47 Plt Count 189 thou/uL (152-406) 12/19/24 04:47 PT 13.1 SECONDS (10-13.0) H 12/18/24 11:45 INR 1.16 12/18/24 11:45 Sodium 140 mEq/L (136-145) 12/19/24 04:47 Potassium 3.7 mEq/L (3.5-5.1) 12/19/24 04:47 BUN 16 mg/dL (7-18) 12/19/24 04:47 Creatinine 1.23 mg/dL (0.70-1.30) 12/19/24 04:47 Glucose 106 mg/dL (74-106) 12/19/24 04:47 Magnesium 2.1 mg/dL (1.6-2.4) 12/18/24 11:45 Total Bilirubin 1.0 mg/dL (0.2-1.0) 12/19/24 04:47 AST 15 U/L (15-37) 12/19/24 04:47 ALT 17 U/L (16-61) 12/19/24 04:47 Alkaline Phosphatase 59 U/L (45-117) 12/19/24 04:47 Home Medications: Amlodipine [Norvasc*] 10 mg PO DAILY 08/07/19 Clopidogrel Bisulfate [Plavix*] 75 mg PO DAILY 08/07/19 Cyclobenzaprine [Flexeril*] 10 mg PO TID PRN 08/07/19 Docusate [Colace Cap*] 100 mg PO DAILY 08/07/19 Famotidine [Pepcid*] 20 mg PO BID 08/07/19 Ferrous Sulfate [Iron] 325 mg PO DAILY 08/07/19 Furosemide [Lasix] 20 mg PO DAILY 08/07/19 Gabapentin 300 mg PO BEDTIME 08/07/19 L.acidoph,Paracasei, B.lactis [Probiotic] 1 each PO BEDTIME 08/07/19 Metoprolol Succinate 50 mg PO DAILY 08/07/19 Pravastatin Sodium 80 mg PO DAILY 08/07/19 Tamsulosin [Flomax*] 0.4 mg PO BID 08/07/19 Trazodone HCl 100 mg PO BEDTIME 08/07/19 Venlafaxine HCl 75 mg PO DAILY 08/07/19 Furosemide [Lasix*] 20 mg PO DAILY tab 12/20/24 Valsartan [Diovan*] 320 mg PO DAILY #90 tab 12/20/24 New Medications: Valsartan [Diovan*] 320 mg PO DAILY #90 tab Followup: Sunny Douglass MD [ACTIVE - CAN ADMIT] - 1-2 Weeks
[2024-12-20] MEDS: FAMOTIDINE 20 MG TAB PO SCH (13:19)
== END 2024-12-20 15:50 | disposition home health service (06) | DRG 641 ==
LOC: ER 11:10 → ERHOLD 13:56 → 2ND 19:55 → OBSVTOIN 12-20 12:50
PROVIDERS: ADMIT Internal Medicine; ATTEND Internal Medicine
DX: E86.0 Dehydration (principal); E78.5 Hyperlipidemia, unspecified; K21.9 Gastro-esophageal reflux disease without esophagitis; I12.9 Hypertensive chronic kidney disease with stage 1 through stage 4 chronic kidney disease, or unspecified chronic kidney disease; N18.9 Chronic kidney disease, unspecified; D63.1 Anemia in chronic kidney disease; E66.9 Obesity, unspecified; M19.90 Unspecified osteoarthritis, unspecified site; I25.10 Atherosclerotic heart disease of native coronary artery without angina pectoris; R55 Syncope and collapse; R56.9 Unspecified convulsions; R29.6 Repeated falls; Z91.81 History of falling; Z88.0 Allergy status to penicillin; Z68.30 Body mass index [BMI] 30.0-30.9, adult; Z79.02 Long term (current) use of antithrombotics/antiplatelets; Z91.013 Allergy to seafood; Z87.891 Personal history of nicotine dependence; W18.30XA Fall on same level, unspecified, initial encounter; Y93.9 Activity, unspecified; Y92.019 Unspecified place in single-family (private) house as the place of occurrence of the external cause; Y99.9 Unspecified external cause status
CPT/HCPCS: 36415; 70450; 70551; 71045; 72125; 80048; 80053; 80076; 83735; 84484; 85025; 85610; 90732; 93005; 96360; 97116; 97161; 99285; G0378